=== PATIENT | female | born 1940 | race Caucasian/White ===

== ENCOUNTER 2017-06-05 17:48 | Emergency (ER) | payer MEDICARE, OTHER ==
[~2017-06-05] VITALS: Ht 165.1 cm; Wt 77.1 kg
[2017-06-05] MEDS ORDERED: ALLERGY10 MG PO (18:09)
[2017-06-05] MEDS ORDERED: HYDROCODON-ACE1 EAC8 PO (18:25)
[2017-06-05] MEDS ORDERED: LOSARTAN-HCTZ1 EAC2 PO (18:25)
[2017-06-05] MEDS ORDERED: PROZAC20 MG PO (18:26)
[2017-06-05] MEDS ORDERED: VERAPAMIL ER120 MG PO (18:26)
[2017-06-05] MEDS ORDERED: NORCO 5-325 TA1 EACH PO (19:55)
== END 2017-06-05 20:04 | disposition home or self-care (01) ==
LOC: ED 17:48
DX: T84.018A Broken internal joint prosthesis, other site, initial encounter (principal); Z88.7 Allergy status to serum and vaccine; Z88.5 Allergy status to narcotic agent; Z88.8 Allergy status to other drugs, medicaments and biological substances; Z79.899 Other long term (current) drug therapy
CPT/HCPCS: 73030; 73130; 99283

== ENCOUNTER 2018-08-19 16:15 | Emergency (ER) | payer MEDICARE, OTHER ==
[~2018-08-19] VITALS: Ht 165.1 cm; Wt 77.1 kg
--- OUTSIDE RECORDS SUMMARY | ~2018-08-19 | XMS | Clinical Summary ---
Demographics + + + | Address | [address] | | | [place] [address] | + + + | Home Phone | | + + + | Preferred Language | Unknown | + + + | Marital Status | | + + + | Moravian Affiliation | 1041 | + + + | Race | Unknown | + + + | Ethnic Group | Unknown | + + + Author + + + | Author | [facility] | | | and [place] | + + + | Organization | [facility] | | | and [place] | + + + | Address | Unknown | + + + | Phone | Unavailable | + + + Support + + + + + | Name | Relationship | Address | Phone | + + + + + | Lang Martinez | ECON | [address] | | | | | [place], [place] | | | | | [address] | | + + + + + | Leeann Bush | ECON | Unknown | | + + + + + Care Team Providers + +------+ + | Care Seismograph Chief Name | Role | Phone | + +------+ + | Apolinar Hernandez MD | PP | | + +------+ + Allergies + + + + + + | Active Allergy | Reactions | Severity | Noted | Comments | | | | | Date | | + + + + + + | Lovastatin | Hives, Rash | Low | 04/22/19 | Myalgias | | | | | 17 | | + + + + + + | Codeine | | | 04/22/19 | | | | | | 17 | | + + + + + + | Alendronate | Other (See Comments) | | 04/22/19 | Abdominal pain | | | | | 17 | | + + + + + + | Gabapentin | Other (See Comments) | | 04/22/19 | Malaise | | | | | 17 | | + + + + + + | Atorvastatin | Hives, Rash | Low | 04/22/19 | | | | | | 17 | | + + + + + + | Pregabalin | Swelling | | 04/22/19 | Edema; Malaise | | | | | 17 | | + + + + + + | Niacin And Related | | | 04/22/19 | | | | | | 17 | | + + + + + + | Sulfa Antibiotics | Diarrhea, Nausea And | | 04/22/19 | | | | Vomiting | | 17 | | + + + + + + | Tetanus Toxoids | Hives | | 04/22/19 | Hives and Fever. | | | | | 15 | | + + + + + + | Trazodone | Other (See Comments) | | 04/22/19 | Dysphoria | | | | | 17 | | + + + + + + Medications + + + +---------+------+------+-------+ | Medication | Sig | Dispensed | Refills | Star | End | Statu | | | | | | t | Date | s | | | | | | Date | | | + + + +---------+------+------+-------+ | tiZANidine | Take 8 mg by mouth | | 0 | | | Activ | | (ZANAFLEX) 4 mg | every 8 hours as | | | | | e | | tablet | needed. | | | | | | + + + +---------+------+------+-------+ | FLUoxetine | Take 40 mg by mouth | | 0 | | | Activ | | (PROZAC) 20 mg | as needed. | | | | | e | | capsule | | | | | | | + + + +---------+------+------+-------+ | famotidine | Take 20 mg by mouth | | 0 | | | Activ | | (PEPCID) 20 mg | 2 times daily. | | | | | e | | tablet | | | | | | | + + + +---------+------+------+-------+ | | Take 1 tablet by | | 0 | | | Activ | | losartan-hydrochloro | mouth Daily. | | | | | e | | thiazide (HYZAAR) | | | | | | | | 100-25 MG per tablet | | | | | | | + + + +---------+------+------+-------+ | ALPRAZolam (XANAX) | Take 0.125-0.25 mg | | 0 | | | Activ | | 0.25 mg tablet | by mouth nightly as | | | | | e | | | needed. | | | | | | + + + +---------+------+------+-------+ | trimethoprim | Take 100 mg by mouth | | 0 | | | Activ | | (TRIMPEX) 100 MG | 2 times daily. | | | | | e | | tablet | | | | | | | + + + +---------+------+------+-------+ | | Take 1 tablet by | | 0 | 11/2 | | Activ | | HYDROcodone-acetamin | mouth every 8 hours | | | 1/20 | | e | | ophen (NORCO) | as needed. | | | 16 | | | | 7.5-325 mg per | | | | | | | | tablet | | | | | | | + + + +---------+------+------+-------+ | naproxen | Take 1 tablet by | | 0 | 11/0 | | Activ | | (NAPROSYN) 500 mg | mouth Twice daily | | | 7/20 | | e | | tablet | as needed. | | | 16 | | | + + + +---------+------+------+-------+ | ferrous sulfate | Take 325 mg by mouth | | 0 | | | Activ | | 325 mg tablet | daily (with | | | | | e | | | breakfast). | | | | | | + + + +---------+------+------+-------+ | fluticasone | 1 spray by Nasal | | 0 | | | Activ | | (FLONASE) 50 | route as needed. | | | | | e | | mcg/nasal spray | | | | | | | + + + +---------+------+------+-------+ | SUMAtriptan | Take 50 mg by mouth | | 0 | | | Activ | | (IMITREX) 50 mg | as needed for | | | | | e | | tablet | Migraine. | | | | | | + + + +---------+------+------+-------+ | verapamil (CALAN | Take 240 mg by mouth | | 0 | | | Activ | | SR) 240 mg SR tablet | Daily. | | | | | e | + + + +---------+------+------+-------+ | B Complex Vitamins | Take 1 tablet by | | 0 | | | Activ | | (VITAMIN B COMPLEX) | mouth Daily. | | | | | e | | tablet | | | | | | | + + + +---------+------+------+-------+ | meclizine | Take 12.5 mg by | | 0 | | | Activ | | (ANTIVERT) 25 mg | mouth Twice daily | | | | | e | | tablet | as needed. | | | | | | + + + +---------+------+------+-------+ | Cyanocobalamin | Place 5,000 mcg | | 0 | | | Activ | | (VITAMIN B-12) 5000 | under the tongue | | | | | e | | MCG SUBL | Daily. | | | | | | + + + +---------+------+------+-------+ | cholecalciferol | Take 2,000 Units by | | 0 | | | Activ | | (CHOLECALCIFEROL) | mouth Daily. | | | | | e | | 1000 UNITS TABS | | | | | | | + + + +---------+------+------+-------+ | budesonide | 1 spray by Nasal | | 0 | | | Activ | | (RHINOCORT ALLERGY) | route Daily. | | | | | e | | 32 mcg/nasal spray | | | | | | | | nasal spray | | | | | | | + + + +---------+------+------+-------+ Active Problems + + + | Problem | Noted Date | + + + | Osteoporosis | 06/16/2014 | + + + | Lumbar radiculopathy | 06/16/2014 | + + + | DDD (degenerative disc disease), lumbar | 06/16/2014 | + + + | Facet arthritis of lumbar region | 06/16/2014 | + + + | Trochanteric bursitis of both hips | 06/16/2014 | + + + | Right knee pain | 06/16/2014 | + + + Immunizations + + + + | Name | Dates Previously Given | Next Due | + + + + | INFLUENZA PF | 01/14/2014 | | | QUAD(PED/ADOL/ADULT) | | | | ,PSKT or VIAL | | | + + + + | PNEUMOCOCCAL, | 04/16/2011 | | | UNSPECIFIED | | | | FORMULATION | | | + + + + | ZOSTER, 1 DOSE | 04/16/2005 | | | (ZOSTAVAX) | | | + + + + Family History + + +---------+ + | Medical History | Relation | Name | Comments | + + +---------+ + | No known problems | Daughter | LEEANN | | | | | RAFA | | + + +---------+ + | Arthritis | Father | FOREST | | | | | JIGNA | | + + +---------+ + | Heart disease | Father | FOREST | | | | | BENITO | | + + +---------+ + | No known problems | Maternal | | | | | Grandfath | | | | | er | | | + + +---------+ + | No known problems | Maternal | | | | | Grandmoth | | | | | er | | | + + +---------+ + | Heart disease | Mother | GABBI | | | | | BENITO | | + + +---------+ + | Rheum arthritis | Mother | GABBI | | | | | BENITO | | + + +---------+ + | No known problems | Paternal | | | | | Grandfath | | | | | er | | | + + +---------+ + | No known problems | Paternal | | | | | Grandmoth | | | | | er | | | + + +---------+ + | Stillborn | Son | | | + + +---------+ + + +---------+ + + | Relation | Name | Status | Comments | + +---------+ + + | Daughter | LEEANN | Alive | | | | RAFA | | | + +---------+ + + | Father | FOREST | | Heart | | | BENITO | (Age | | | | | 50) | | + +---------+ + + | Maternal Grandfather | | | | + +---------+ + + | Maternal Grandmother | | | | + +---------+ + + | Mother | GABBI | | Pneumonia | | | BENITO | (Age | | | | | 70) | | + +---------+ + + | Paternal Grandfather | | | | + +---------+ + + | Paternal Grandmother | | | | + +---------+ + + | Son | | | Stillborn | | | | (Age | | | | | 0) | | + +---------+ + + | Son | | | | + +---------+ + + Social History + +-------+ +--------+------+ | Tobacco Use | Types | Packs/Day | Years | Date | | | | | Used | | + +-------+ +--------+------+ | Never Smoker | | | | | + +-------+ +--------+------+ + +---+---+---+ | Smokeless Tobacco: | | | | | Never Used | | | | + +---+---+---+ + + +---------+ + | Alcohol Use | Drinks/We | oz/Week | Comments | | | ek | | | + + +---------+ + | Yes | 0 | 0.0 | 1-2 drinks monthly | | | Standard | | | | | drinks or | | | | | | | | | | equivalen | | | | | t | | | + + +---------+ + + + + | Sex Assigned at | Date Recorded | | | | + + + | Not on file | | + + + + + + + | Job Start Date | Occupation | Industry | + + + + | Not on file | Not on file | Not on file | + + + + + + + + | Travel History | Travel Start | Travel End | + + + + + + | No recent travel history available. | + + Last Filed Vital Signs + + + + | Vital Sign | Reading | Time Taken | + + + + | Blood Pressure | 193/84 | 05/25/20161430 PST | + + + + | Pulse | 78 | 05/25/20161430 PST | + + + + | Temperature | - | - | + + + + | Respiratory Rate | 15 | 08/17/20142 PDT | + + + + | Oxygen Saturation | - | - | + + + + | Inhaled Oxygen | - | - | | Concentration | | | + + + + | Weight | 86.4 kg (190 lb 6.4 | 05/17/20161003 PST | | | oz) | | + + + + | Height | 165.1 cm (5' 5") | 05/17/20161003 PST | + + + + | Body Mass Index | 31.68 | 05/17/20161003 PST | + + + + Plan of Treatment + + + + + | Health Maintenance | Due Date | Last Done | Comments | + + + + + | Vaccine: | | | | | Pneumococcal (PPSV23 | 5 | | | | only) 65+ | | | | | Low/Medium Risk (1 | | | | | of 1 - PPSV23) | | | | + + + + + | Vaccine: Zoster (2 | | 04/16/2005 | | | of 3) | 6 | | | + + + + + | Vaccine: Influenza | | 01/14/2014 | | | (Season Ended) | 9 | | | + + + + + Results Not on filefrom Last 3 Months Insurance + +--------+ +--------+ +---------+--------+ | Payer | Benefi | Subscriber | Effect | Phone | Address | Type | | | t Plan | ID | benedict | | | | | | / | | Dates | | | | | | Group | | | | | | + +--------+ +--------+ +---------+--------+ | HUMANA | HUMANA | [id number] | | [phone] | | Indemn | | | MDCR | | 015-Pr | 4 | | ity | | | SUPPL | | esent | | | | + +--------+ +--------+ +---------+--------+ | MEDICARE | MEDICA | [id number] | 12/16/19 | [phone] | | Medica | | | RE | | 05-Pre | 5 | | re | | | PART A | | sent | | | | | | AND B | | | | | | + +--------+ +--------+ +---------+--------+ + +--------+ +--------+ + + | Guarantor Name | Accoun | Relation to | Date | Phone | Billing Address | | | t Type | Patient | of | | | | | | | | | | + +--------+ +--------+ + + | She Benito | Person | Self [birth year] | [address] | | | al/Fam | | 1940 | [phone] | [place] [address] | | | [place] | | | 0 (Home) | | + +--------+ +--------+ + + Advance Directives Patient has advance care planning documents on file. For more information, please contact:[facility] [place] [address]
--- OUTSIDE RECORDS SUMMARY | ~2018-08-19 | XMS | Clinical Summary ---
Demographics + + + | Address | [address] | | | [place] [address] | + + + | Home Phone | | + + + | Preferred Language | Unknown | + + + | Marital Status | | + + + | Quaker Affiliation | 1041 | + + + | Race | Unknown | + + + | Ethnic Group | Unknown | + + + Author + + + | Author | [facility] | | | and Liorana | + + + | Organization | [facility] | | | and Liorana [...] [place], [place] | | | | | [address] | | + + + + + | Leeann Bush | ECON | Unknown | | + + + + + Care Team Providers + +------+ + | Care Information Technology Coordinator Name | Role | Phone | + [...] +--------+ +---------+--------+ | HUMANA | HUMANA | [id number] | | [phone] | | Indemn | | | MDCR | | 015-Pr | 4 | | ity | | | SUPPL | | esent | | | | + +--------+ +--------+ +---------+--------+ | MEDICARE | MEDICA | [id number] | 12/16/19 | [phone] | | Medica [...] | 1940 | [phone] | [place] [address] | | | [place] | | | 0 (Home) | | + +--------+ +--------+ + + Advance Directives Patient has advance care planning documents on file. For more information, please contact:[facility] [address]
[~2018-08-19 16:15] MED LIST: ALLERGY10 MG PO; HYDROCODON-ACE1 EAC8 PO; LOSARTAN-HCTZ1 EAC2 PO; NORCO 5-325 TA1 EACH PO; PROZAC20 MG PO; VERAPAMIL ER120 MG PO
--- OUTSIDE RECORDS SUMMARY | 2018-08-19 16:18 | XMS ---
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 E.D. VISIT COUNT (12 MO.) 1 [facility] TOTAL 1 NOTE: Visits indicate total known visits. ED/UCC VISIT TRACKING (12 MO.) 08/19/2018 16:16 [facility] [place] TYPE: Emergency COMPLAINT: - FALL,R SHOULDER PAIN INPATIENT VISIT TRACKING (12 MO.) No inpatient visits to display in this time frame [email or web address]
[2018-08-19] MEDS ORDERED: FAMOTIDINE20 MG PO (17:05)
[2018-08-19] MEDS ORDERED: PERCOCET 5-3251 EACH PO (19:23)
== END 2018-08-19 19:30 | disposition home or self-care (01) ==
LOC: ED 16:15
DX: M25.511 Pain in right shoulder (principal); I10 Essential (primary) hypertension; E78.00 Pure hypercholesterolemia, unspecified; Z88.7 Allergy status to serum and vaccine; Z88.5 Allergy status to narcotic agent; Z79.899 Other long term (current) drug therapy; Z91.048 Other nonmedicinal substance allergy status
CPT/HCPCS: 73030; 96372; 99283-25; J1170

== ENCOUNTER 2019-09-07 22:28 | Emergency (ER) | payer MEDICARE, OTHER ==
[~2019-09-07] VITALS: Ht 165.1 cm; Wt 77.1 kg
--- OUTSIDE RECORDS SUMMARY | ~2019-09-07 | XMS | Encounter Summary ---
Demographics + + + | Address | [address] | | | [place] [address] | + + + | Home Phone | | + + + | Preferred Language | Unknown | + + + | Marital Status | | + + + | Judaism Affiliation | 1041 | + + + | Race | Unknown | + + + | Ethnic Group | Unknown | + + + Author + + + | Author | [facility] | | | and Liorana | + + + | Organization | [facility] | | | and Liorana [...] [place], [place] | | | | | [address] | | + + + + + | Leeann Bush | ECON | Unknown | | + + + + + Care Team Providers + +------+ + | Care Supervisor Baking Name | Role | Phone | + +------+ + PCP | Unavailable | + +------+ + Encounter Details +--------+ + + + + | Date | Type | Department | Care Team | Description | +--------+ + + + + | 11/16/ | Hospital | [facility] | | | | 2003 | Encounter | MED CTR XRAY [address] | | | | | | [address] | | | | | | [place] [address] | | | | | | [phone] | | | +--------+ + + + + Social History + +-------+ +--------+------+ | Tobacco Use | Types | Packs/Day | Years | Date | | | | | Used | | + +-------+ +--------+------+ | Never Assessed | | | | | + +-------+ +--------+------+ + + + | Sex Assigned at [...] recent travel history available. | + + documented as of this encounter Plan of Treatment Not on filedocumented as of this encounter Visit Diagnoses Not on filedocumented in this encounter"
--- OUTSIDE RECORDS SUMMARY | ~2019-09-07 | XMS | Encounter Summary ---
Demographics + + + | Address | [address] | | | [place] [address] | + + + | Home Phone | | + + + | Preferred Language | Unknown | + + + | Marital Status | | + + + | Alevism Affiliation | 1041 | + + + | Race | Unknown | + + + | Ethnic Group | Unknown | + + + Author + + + | Author | [facility] | | | and Liorana | + + + | Organization | [facility] | | | and Liorana | [...] [place], [place] | | | | | [address] | | + + + + + | Leeann Bush | ECON | Unknown | | + + + + + Care Team Providers + +------+ + | Care Chocolate Maker Name | Role | Phone | + +------+ + | Apolinar Hernandez MD | PCP | | + +------+ + Encounter Details +--------+ + + + + | Date | Type | Department | Care Team | Description | +--------+ + + + + | 07/08/ | Hospital | [facility] | Ronal, | Right knee pain | | 2015 | Encounter | MED CTR XRAY [address] | [address] | | | | | [place] | [address] | | | | | [place] [address] | [place] [address] | | | | | [phone] | [phone] | | | | | | | | +--------+ + + + [...] + +---------+ + | Alcohol Use | Drinks/Week | oz/Week | Comments | + + +---------+ + | Yes | | | Social | + + +---------+ + + + [...] + + documented as of this encounter Medications at Time of Discharge + + + +---------+ + + | Medication | Sig | Dispensed | Refills | Start | End Date | | | | | | Date | | + + + +---------+ + + | ALPRAZolam (XANAX) | Take 0.125-0.25 mg | | 0 | | | | 0.25 mg tablet | by mouth nightly as | | | | | | | needed. | | | | | + + + +---------+ + + | famotidine | Take 20 mg by mouth | | 0 | | | | (PEPCID) 20 mg | 2 times daily. | | | | | | tablet | | | | | | + + + +---------+ + + | FLUoxetine | Take 40 mg by mouth | | 0 | | | | (PROZAC) 20 mg | as needed. | | | | | | capsule | | | | | | + + + +---------+ + + | | Take 1 tablet by | | 0 | | | | losartan-hydrochloro | mouth Daily. | | | | | | thiazide (HYZAAR) | | | | | | | 100-25 MG per tablet | | | | | | + + + +---------+ + + | tiZANidine | Take 8 mg by mouth | | 0 | | | | (ZANAFLEX) 4 mg | every 8 hours as | | | | | | tablet | needed. | | | | | + + + +---------+ + + | trimethoprim | Take 100 mg by mouth | | 0 | | | | (TRIMPEX) 100 MG | 2 times daily. | | | | | | tablet | | | | | | + + + +---------+ + + | Cholecalciferol | Take 1 capsule by | | 0 | | | | (VITAMIN D PO) | mouth Twice a week. | | | | 7 | + + + +---------+ + + | gabapentin | Take 1 capsule by | 60 | 0 | 07/09/19 | | | (NEURONTIN) 300 mg | mouth 2 times daily. | capsule | | 15 | 7 | | capsule | | | | | | + + + +---------+ + + | | Take 1 tablet by | | 0 | | | | HYDROcodone-acetamin | mouth every 6 hours | | | | 7 | | ophen (NORCO) 5-325 | as needed. | | | | | | mg per tablet | | | | | | + + + +---------+ + + | NAPROXEN PO | Take by mouth | | 0 | | | | | Daily. | | | | 7 | + + + +---------+ + + | POTASSIUM PO | Take 10 mcg by mouth | | 0 | | | | | Daily. | | | | 7 | + + + +---------+ + + | VERAPAMIL HCL PO | Take 500 mg by mouth | | 0 | | | | | Daily. | | | | 7 | + + + +---------+ + + documented as of this encounter Plan of Treatment Not on filedocumented as of this encounter Procedures + +--------+ + + + | Procedure Name | Priori | Date/Time | Associated Diagnosis | Comments | | | ty | | | | + +--------+ + + + | XR KNEE RIGHT 4 + VW | Routin | 07/08/2014 | Right knee pain | Results for this | | | e | 3:11 PM | | procedure are in the | | | | PDT | | results section. | + +--------+ + + + documented in this encounter Results XR Knee Right 4 + Vw (07/08/2014 3:11 PM PDT) + + | Specimen | + + | | + + + + + | Narrative | Performed At | + + + | RIGHT KNEE: 07/08/2014 3:11 PM CLINICAL HISTORY: chronic right | [facility] | | knee pain, possible arthritis COMPARISON: None FINDINGS: AP | [facility] | | and PA standing and sunrise views of both knees along with lateral | [facility] | | view of the right knee. Bilaterally there is moderately severe joint | - IMAGING | | space narrowing of the medial compartment. This is somewhat greater | | | on the right. On the right subchondral bone is sclerotic but smooth. | | | Small joint marginal osteophytes on the tibia. Mild narrowing of the | | | lateral patellofemoral space bilaterally. No fracture or bony | | | destructive change. No joint effusion or other soft tissue | | | abnormality. IMPRESSION - Moderate bilateral osteoarthrosis of the | | | knees, most severe in the medial compartments. Dictated and | | | Signed by: Bryan De La Vega MD Electronically signed: 07/08/2014 4:30 | | | PM | | + + + + + | Procedure Note | + + | Martín, Rad Results In - 07/08/2014 4:34 PM PDT RIGHT KNEE: 07/08/2014 3:11 PM | | | | CLINICAL HISTORY: chronic right knee pain, possible arthritis | | | | COMPARISON: None | | | | FINDINGS: AP and PA standing and sunrise views of both knees along with lateral | | view of the right knee. | | Bilaterally there is moderately severe joint space narrowing of the medial | | compartment. This is somewhat greater on the right. On the right subchondral | | bone is sclerotic but smooth. Small joint marginal osteophytes on the tibia. | | Mild narrowing of the lateral patellofemoral space bilaterally. | | | | No fracture or bony destructive change. No joint effusion or other soft tissue | | abnormality. | | | | IMPRESSION - Moderate bilateral osteoarthrosis of the knees, most severe in the | | medial compartments. | | | | Dictated and Signed by: Bryan De La Vega MD | | Electronically signed: 07/08/2014 4:30 PM | + + + + + + + | Performing | Address | City/State/Zipcode | Phone Number | | Organization | | | | + + + + + | [facility] | [address] | [place] | [phone] | | [facility] | | [address] | | | - IMAGING | | | | + + + + + documented in this encounter Visit Diagnoses + + | Diagnosis | + + | Right knee pain Pain in joint, lower leg | + + documented in this encounter"
--- OUTSIDE RECORDS SUMMARY | ~2019-09-07 | XMS | Encounter Summary ---
Demographics + + + | Address | [address] | | | [place] [address] | + + + | Home Phone | | + + + | Preferred Language | Unknown | + + + | Marital Status | | + + + | Worship Affiliation | 1041 | + + + | Race | Unknown | + + + | Ethnic Group | Unknown | + + + Author + + + | Author | [facility] | | | and Liorana | + + + | Organization | [facility] | | | and Liorana [...] [place], [place] | | | | | [address] | | + + + + + | Leeann Bush | ECON | Unknown | | + + + + + Care Team Providers + +------+ + | Care Clothes Drier Assembler Name | Role | Phone | + +------+ + PCP | Unavailable | + +------+ + Encounter Details +--------+ + + + + | Date | Type | Department | Care Team | Description | +--------+ + + + + | 10/28/ | Hospital | [facility] | | | | 1993 | Encounter | MED CTR XRAY [address] | | | | | | [address] | | | | | | [place] [address] | | | | | | [phone] | | | +--------+ + + + [...]
--- OUTSIDE RECORDS SUMMARY | ~2019-09-07 | XMS | Encounter Summary ---
Demographics + + + | Address | [address] | | | [place] [address] | + + + | Home Phone | | + + + | Preferred Language | Unknown | + + + | Marital Status | | + + + | Anabaptist Affiliation | 1041 | + + + | Race | Unknown | + + + | Ethnic Group | Unknown | + + + Author + + + | Author | [facility] | | | and Liorana | + + + | Organization | [facility] | | | and Liorana [...] [place], [place] | | | | | [address] | | + + + + + | Leeann Bush | ECON | Unknown | | + + + + + Care Team Providers + +------+ + | Care Machine Steak Tenderizer Name | Role | Phone | + +------+ + PCP | Unavailable | + +------+ + Encounter Details +--------+ + + + + | Date | Type | Department | Care Team | Description | +--------+ + + + + | 01/24/ | Hospital | [facility] | | | | 2005 | Encounter | MED CTR XRAY [address] | | | | | | [address] | | | | | | [place] [address] | | | | | | [phone] | | | +--------+ + + + [...]
--- OUTSIDE RECORDS SUMMARY | ~2019-09-07 | XMS | Encounter Summary ---
Demographics + + + | Address | [address] | | | [place] [address] | + + + | Home Phone | | + + + | Preferred Language | Unknown | + + + | Marital Status | | + + + | Yazidism Affiliation | 1041 | + + + | Race | Unknown | + + + | Ethnic Group | Unknown | + + + Author + + + | Author | [facility] | | | and Liorana | + + + | Organization | [facility] | | | and Liorana [...] [place], [place] | | | | | [address] | | + + + + + | Leeann Bush | ECON | Unknown | | + + + + + Care Team Providers + +------+ + | Care Enamel Pulverizer Name | Role | Phone | + +------+ + | Apolinar Hernandez MD | PCP | | + +------+ + Encounter Details +--------+ + + + + | Date | Type | Department | Care Team | Description | +--------+ + + + + | 03/30/ | Orders Only | [facility] [place] | Nate Hawk, | Chronic right-sided | | 2016 | | NEUROSURGERY [address] | DO [address] | back pain, | | | | [address] | [address] [place], [place] | unspecified back | | | | [place], [place] | [address] | location (Primary | | | | [address] | | Dx) | | | | [phone] | | | +--------+ + + + [...] Not on filedocumented as of this encounter Results XR Lumbar Spine 4 + Vw (05/17/2016 8:23 AM PST) + + | Specimen | + + | | + + + + + | Narrative | Performed At | + + + | EXAM: XR LUMBAR SPINE 4 + VW HISTORY: back pain | [facility] | | TECHNIQUE: AP, lateral neutral, lateral flexion and extension views of | [facility] | | the lumbar spine COMPARISON: 04/04/2016. FINDINGS: Bones | [facility] | | appear osteopenic. There is evidence of mild to moderate multilevel | - IMAGING | | lumbar disc and facet degeneration, most pronounced at the lower | | | lumbar levels. Alignment is normal. No abnormal motion with flexion | | | or extension. No fractures are evident. Paraspinous soft tissues are | | | unremarkable. There are atherosclerotic calcifications in the aorta. | | | IMPRESSION - Multilevel lumbar degeneration. No radiographic | | | evidence for significant instability. Osteopenia. CRITICAL | | | VALUE: No Dictated and Signed by: Bahman Clement MD | | | Electronically signed: 05/17/2016 8:26 AM | | + + + + + | Procedure Note | + + | Martín, Rad Results In - 05/17/2016 8:29 AM PST EXAM: XR LUMBAR SPINE 4 + VW | | | | HISTORY: back pain | | | | TECHNIQUE: AP, lateral neutral, lateral flexion and extension views of the | | lumbar spine | | | | COMPARISON: 04/04/2016. | | | | FINDINGS: | | Bones appear osteopenic. | | There is evidence of mild to moderate multilevel lumbar disc and facet | | degeneration, most pronounced at the lower lumbar levels. | | Alignment is normal. No abnormal motion with flexion or extension. | | No fractures are evident. | | Paraspinous soft tissues are unremarkable. | | There are atherosclerotic calcifications in the aorta. | | | | IMPRESSION - | | Multilevel lumbar degeneration. No radiographic evidence for significant | | instability. | | Osteopenia. | | | | CRITICAL VALUE: No | | | | Dictated and Signed by: Bahman Clement MD | | Electronically signed: 05/17/2016 8:26 AM | + + + + + + + | Performing | Address | City/State/Zipcode | Phone Number | | Organization | | | | + + + + + | [facility] | [address] | [place] | [phone] | | [facility] | | [address] | | | - IMAGING | | | | + + + + + documented in this encounter Visit Diagnoses + + | Diagnosis | + + | Chronic right-sided back pain, unspecified back location - Primary | + + documented in this encounter"
--- OUTSIDE RECORDS SUMMARY | ~2019-09-07 | XMS | Encounter Summary ---
Demographics + + + | Address | [address] | | | [place] [address] | + + + | Home Phone | | + + + | Preferred Language | Unknown | + + + | Marital Status | | + + + | Bahai Affiliation | 1041 | + + + | Race | Unknown | + + + | Ethnic Group | Unknown | + + + Author + + + | Author | [facility] | | | and Liorana | + + + | Organization | [facility] | | | and Liorana [...] [place], [place] | | | | | [address] | | + + + + + | Leeann Bush | ECON | Unknown | | + + + + + Care Team Providers + +------+ + | Care Commercial Construction Estimator Name | Role | Phone | + +------+ + | Apolinar Hernandez MD | PCP | | + +------+ + Reason for Visit Service/Procedure (Routine) +--------+--------+ + + + + | Status | Reason | Specialty | Diagnoses / | Referred By | Referred To | | | | | Procedures | Contact | Contact | +--------+--------+ + + + + | Closed | | Radiology | Diagnoses | | [facility] | | | | | Thoracic or | [place], | [address] | | | | | lumbosacral | Mohinder Albarran MD | [place], | | | | | neuritis or | [address] | [place] | | | | | | [place] | [address] | | | | | radiculitis, | [place], [place] | Phone: | | | | | unspecified | [address] | [phone] | | | | | Procedures | Phone: | Fax: | | | | | [place] INJECT | [phone] | [phone] | | | | | ANES/STEROID | Fax: | | | | | | FORAMEN | [phone] | | | | | | LUMBAR/SACRA | | | | | | | L W IMG | | | | | | | GUIDE ,1 | | | | | | | LEVEL [place] | | | | | | | TRIAMCINOLON | | | | | | | E ACET INJ | | | | | | | NOS, 10 MG | | | | | | | Right L5-S1 | | | | | | | TFESI-appt | | | | | | | 4/9 | | | +--------+--------+ + + + + Encounter Details +--------+ + + + + | Date | Type | Department | Care Team | Description | +--------+ + + + + | 07/23/ | Hospital | [facility] | Jorgedanomendy, | Right knee pain; | | 2014 | Encounter | MED CTR XRAY [address] | [address] | Right lumbar | | | | [place] | [facility] | radiculopathy | | | | [place] [address] | [place] [address] | | | | | [phone] | [phone] | | | | | | | | | | | | Grape CrusherEdmundo | | | | | | familia mauricio | | +--------+ + + + + [...] + + documented as of this encounter Last Filed Vital Signs + +---------+ + + | Vital Sign | Reading | Time Taken | Comments | + +---------+ + + | Blood Pressure | 193/105 | 07/23/2014 4:05 PM | | | | | PDT | | + +---------+ + + | Pulse | 66 | 07/23/2014 4:05 PM | | | | | PDT | | + +---------+ + + | Temperature | - | - | | + +---------+ + + | Respiratory Rate | - | - | | + +---------+ + + | Oxygen Saturation | - | - | | + +---------+ + + | Inhaled Oxygen | - | - | | | Concentration | | | | + +---------+ + + | Weight | - | - | | + +---------+ + + | Height | - | - | | + +---------+ + + | Body Mass Index | - | - | | + +---------+ + + documented in this encounter Medications at Time of Discharge [...] | + +--------+ + + + | FL EPIDURAL STEROID | Routin | 07/23/2014 | Right knee pain | Results for this | | INJECTION LUMBAR | e | 3:56 PM | Right lumbar | procedure are in the | | TRANSFORAMINAL | | PDT | radiculopathy | results section. | + +--------+ + + + documented in this encounter Results FL DELMI Lumbar Transforaminal (07/23/2014 3:56 PM PDT) + + | Specimen | + + | | + + + + + | Narrative | Performed At | + + + | 07/23/2014 Transforaminal Epidural Steroid Injection Diagnosis: | [facility] | | Lumbar radiculopathy ICD-9 Code 724.4 She Mckeon | [facility] | | presents to the fluoroscopy suite for a fluoroscopically-guided [facility] | | right L5-S1 transforaminal epidural steroid injection as part of | - IMAGING | | conservative management for chronic pain with lumbar radiculopathy | | | and degenerative disk disease. After informed consent was | | | obtained, the patient lay in the prone position on the fluoroscopy | | | table. The area was identified under fluoroscopic guidance. The | | | area was prepped and draped in sterile fashion. A 25-gauge, | | | 1.5-inch needle was inserted into this region and approximately 3 mL | | | of buffered 1% lidocaine was infused. Then, a 22-gauge spinal | | | needle was inserted into the posterior superior transforaminal space | | | and advanced into the epidural space under fluoroscopic guidance. | | | Confirmation into the epidural space was obtained with infusion of | | | approximately 1 mL of Omnipaque contrast which showed epidural flow | | | as well as nerve sheath flow. Then, a combination of 1.5 mL of | | | 1% lidocaine and 1.5 mL of 6 mg/mL Celestone was infused. The | | | patient tolerated the procedure well without complications. Pre- and | | | post-procedure blood pressures were stable. The patient was given | | | verbal as well as written follow-up instructions. Prior to | | | the start of the procedure, the following were performed and/or | | | verified, including correct patient identity, correct site/side marked | | | and visible, agreement on the procedure to be done, correct patient | | | positioning and an accurate procedure consent form. Any safety | | | precautions based on clinical history and/or medication use have been | | | addressed. I personally performed the procedure above. | | | Estimated blood loss: Minimal Complications: None Findings: As | | | expected Anesthesia: Local 1% Lidocaine | | + + + + + + + + | Performing | Address | City/State[facility] | Phone Number | | Organization | | | | + + + + + | [facility] | [address] | [place] | [phone] | | [facility] | | [address] | | | - IMAGING | | | | + + + + + documented in this encounter Visit Diagnoses + + | Diagnosis | + + | Right knee pain Pain in joint, lower leg | + + | Right lumbar radiculopathy Thoracic or lumbosacral neuritis or radiculitis, | | unspecified | + + documented in this encounter Administered Medications + +--------+ +------+------+------+ | Medication Order | MAR | Action | Dose | Rate | Site | | | Action | Date | | | | + +--------+ +------+------+------+ | betamethasone (CELESTONE | Given | 07/24/19 | 6 mg | | | | SOLUSPAN) injection 6 mg 6 mg, | | 15 4:04 | | | | | Other, ONCE, [facility] 07/23/14 at 1615, | | PM PDT | | | | | For 1 dose, Shake well. Not for | | | | | | | IV use., | | | | | | + +--------+ +------+------+------+ +---+---+ | | | +---+---+ + +-------+ +-------+---+---+ | iohexol (OMNIPAQUE 300) 300 | Given | 07/24/19 | 4 mLs | | | | mg/mL injection 4 mL 4 mL, | | 15 4:01 | | | | | INTRATHECAL, ONCE, [facility] 07/23/14 at | | PM PDT | | | | | 1615, For 1 dose | | | | | | + +-------+ +-------+---+---+ +---+---+ | | | +---+---+ + +-------+ +------+---+ + | lidocaine 1% injection 1 mL 1 | Given | 07/24/19 | 1 mL | | Other | | mL, Intradermal, ONCE, [facility] 07/23/14 | | 15 3:56 | | | (Comment | | at 1615, For 1 dose | | PM PDT | | | ) | + +-------+ +------+---+ + +---+---+ | | | +---+---+ + +-------+ +------+---+---+ | sodium bicarbonate (NEUT) 4% | Given | 07/24/19 | 1 mL | | | | injection 1 mL 1 mL, | | 15 3:56 | | | | | Intravenous, ONCE, [facility] 07/23/14 at | | PM PDT | | | | | 1615, For 1 dose, Use for | | | | | | | addition to other parenteral | | | | | | | solutions., | | | | | | + +-------+ +------+---+---+ +---+---+ | | | +---+---+ + +-------+ +-------+---+---+ | triamcinolone acetonide | Given | 07/24/19 | 40 mg | | | | (KENALOG-40) 40 mg/mL injection | | 15 4:02 | | | | | 40 mg 40 mg, Intra-articular, | | PM PDT | | | | | ONCE, [facility] 07/23/14 at 1615, For 1 | | | | | | | dose, Shake well. Not for IV | | | | | | | use., | | | | | | + +-------+ +-------+---+---+ +---+---+ | | | +---+---+ documented in this encounter"
--- OUTSIDE RECORDS SUMMARY | ~2019-09-07 | XMS | Encounter Summary ---
Demographics + + + | Address | [address] | | | [place] [address] | + + + | Home Phone | | + + + | Preferred Language | Unknown | + + + | Marital Status | | + + + | Hindu Affiliation | 1041 | + + + | Race | Unknown | + + + | Ethnic Group | Unknown | + + + Author + + + | Author | [facility] | | | and Liorana | + + + | Organization | [facility] | | | and Liorana [...] [place], [place] | | | | | [address] | | + + + + + | Leeann Bush | ECON | Unknown | | + + + + + Care Team Providers + +------+ + | Care Medical Stenographer Name | Role | Phone | + +------+ + | Apolinar Hernandez MD | PCP | | + +------+ + Encounter Details +--------+ + + + + | Date | Type | Department | Care Team | Description | +--------+ + + + + | 04/22/ | Abstract | [facility] [place] | Apolinar Palomino | | | 2014 | | PHYSIATRY [address] | [address] | | | | | [address] [facility] [address] | [place] | | | | | [place] | [place] [address] | | | | | [address] | [phone] | | | | | [phone] | | | +--------+ + + + [...]
--- OUTSIDE RECORDS SUMMARY | ~2019-09-07 | XMS | Encounter Summary ---
Demographics + + + | Address | [address] | | | [place] [address] | + + + | Home Phone | | + + + | Preferred Language | Unknown | + + + | Marital Status | | + + + | Nondenominational Affiliation | 1041 | + + + | Race | Unknown | + + + | Ethnic Group | Unknown | + + + Author + + + | Author | [facility] | | | and Liorana | + + + | Organization | [facility] | | | and Liorana | [...] [place], [place] | | | | | [address] | | + + + + + | Leeann Bush | ECON | Unknown | | + + + + + Care Team Providers + +------+ + | Care Detonator Assembler Name | Role | Phone | + +------+ + | Apolinar Hernandez MD | PCP | | + +------+ + Encounter Details +--------+ + + + + | Date | Type | Department | Care Team | Description | +--------+ + + + + | 04/22/ | Abstract | [facility] [place] | Reed Chicas, | | | 2016 | | NEUROSURGERY [address] | PA-C [address] | | | | | [address] | [address] [place] | | | | | [place], [place] | [place] [address] | | | | | [address] | [phone] | | | | | [phone] | | | +--------+ + + + [...] + +---------+ + | Yes | 0 Standard drinks | 0.0 | 1-2 drinks monthly | | | or equivalent | | | + + +---------+ + [...]
--- OUTSIDE RECORDS SUMMARY | ~2019-09-07 | XMS | Encounter Summary ---
Demographics + + + | Address | [address] | | | [place] [address] | + + + | Home Phone | | + + + | Preferred Language | Unknown | + + + | Marital Status | | + + + | Judaism Affiliation | 1041 | + + + | Race | Unknown | + + + | Ethnic Group | Unknown | + + + Author + + + | Author | [facility] | | | and Liorana | + + + | Organization | [facility] | | | and [...] [place], [place] | | | | | [address] | | + + + + + | Leeann Bush | ECON | Unknown | | + + + + + Care Team Providers + +------+ + | Care Source Inspector Name | Role | Phone | + +------+ + | Apolinar Hernandez MD | PCP | | + +------+ + Encounter Details +--------+ + + + + | Date | Type | Department | Care Team | Description | +--------+ + + + + | 07/08/ | Orders Only | [facility] [place] | Ronal, | Right knee pain | | 2015 | | PHYSIATRY [address] | [address] | (Primary Dx); Right | | | | [address] | [address] | lumbar radiculopathy | | | | [place] | [place] [address] | | | | | [address] | [phone] | | | | | [phone] | | | +--------+ + + + [...] on filedocumented as of this encounter Results FL DELMI Lumbar Transforaminal (07/23/2014 3:56 PM PDT) + + | Specimen | + + | | + + + + + | Narrative | Performed At | + + + | 07/23/2014 Transforaminal Epidural Steroid Injection Diagnosis: | [facility] | | Lumbar radiculopathy ICD-9 Code 724.4 She Mckeon | [facility] | | presents to the fluoroscopy suite for a fluoroscopically-guided [facility] | | right L5-S1 transforaminal epidural steroid [...] | + + + + + | [facility] | [address] | [place] | [phone] | | [facility] | | [address] | | | - IMAGING | | | | + + + + + documented in this encounter Visit Diagnoses + + | Diagnosis | + + | Right knee pain - Primary Pain in joint, lower leg | + + | Right lumbar radiculopathy Thoracic or lumbosacral neuritis or radiculitis, | | unspecified | + + documented in this encounter"
--- OUTSIDE RECORDS SUMMARY | ~2019-09-07 | XMS | Encounter Summary ---
Demographics + + + | Address | [address] | | | [place] [address] | + + + | Home Phone | | + + + | Preferred Language | Unknown | + + + | Marital Status | | + + + | Alevism Affiliation | 1041 | + + + | Race | Unknown | + + + | Ethnic Group | Unknown | + + + Author + + + | Author | [facility] | | | and Liorana | + + + | Organization | [facility] | | | and [...] [place], [place] | | | | | [address] | | + + + + + | Leeann Bush | ECON | Unknown | | + + + + + Care Team Providers + +------+ + | Care Production Welder Name | Role | Phone | + [...] Thoracic or | [place], | [address] | | | | | lumbosacral | Mohinder Albarran MD | [place], | | | | | neuritis or | [address] | [place] | | | | | | [place] | [address] | | | | | radiculitis, | [place], [place] | Phone: | | | | | unspecified | [address] | [phone] | | | | | ADM | Phone: | Fax: | | | | | Procedures | [phone] | [phone] | | | | | [place] INJECT | Fax: | | | | | | ANES/STEROID | [phone] | | | | | | FORAMEN | | | | | | | LUMBAR/SACRA | | | | | | | L W IMG | | | | | | | GUIDE ,1 | | | | | | | LEVEL [place] | | | | | | | TRIAMCINOLON | | | | | | | E ACET INJ | | | | | | | NOS, 10 MG | | | | | | | Right L5-S1 | | | | | | | TFESI-APPT | | | | | | | 3/11 | | | +--------+--------+ + + + + Encounter Details +--------+ + + + + | Date | Type | Department | Care Team | Description | +--------+ + + + + | 06/24/ | Hospital | [facility] | Mohinder Mendoza | Right lumbar | | 2015 | Encounter | MED CTR XRAY [address] | T[address] | radiculopathy | | | | [place] | [facility] [place] | | | | | [place] [address] | [address] | | | | | [phone] | | | | | | | Offset Printing Operator, [facility] | | | | | | [place] | | +--------+ + + + + [...] +---------+ + + | Blood Pressure | 162/84 | 06/24/2014 1:03 PM | | | | | PDT | | + +---------+ + + | Pulse | 111 | 06/24/2014 1:03 PM | | | | | PDT [...] at Time of Discharge + + + +---------+--------+ + | Medication | Sig | Dispensed | Refills | Start | End Date | | | | | | Date | | + + + +---------+--------+ + | ALPRAZolam (XANAX) | Take 0.125-0.25 mg | | 0 | | | | 0.25 mg tablet | by mouth nightly as | | | | | | | needed. | | | | | + + + +---------+--------+ + | famotidine | Take 20 mg by mouth | | 0 | | | | (PEPCID) 20 mg | 2 times daily. | | | | | | tablet | | | | | | + + + +---------+--------+ + | FLUoxetine | Take 40 mg by mouth | | 0 | | | | (PROZAC) 20 mg | as needed. | | | | | | capsule | | | | | | + + + +---------+--------+ + | | Take 1 tablet by | | 0 | | | | losartan-hydrochloro | mouth Daily. | | | | | | thiazide (HYZAAR) | | | | | | | 100-25 MG per tablet | | | | | | + + + +---------+--------+ + | tiZANidine | Take 8 mg by mouth | | 0 | | | | (ZANAFLEX) 4 mg | every 8 hours as | | | | | | tablet | needed. | | | | | + + + +---------+--------+ + | trimethoprim | Take 100 mg by mouth | | 0 | | | | (TRIMPEX) 100 MG | 2 times daily. | | | | | | tablet | | | | | | + + + +---------+--------+ + | Cholecalciferol | Take 1 capsule by | | 0 | | | | (VITAMIN D PO) | mouth Twice a week. | | | | 7 | + + + +---------+--------+ + | | Take 1 tablet by | | 0 | | | | HYDROcodone-acetamin | mouth every 6 hours | | | | 7 | | ophen (NORCO) 5-325 | as needed. | | | | | | mg per tablet | | | | | | + + + +---------+--------+ + | NAPROXEN PO | Take by mouth | | 0 | | | | | Daily. | | | | 7 | + + + +---------+--------+ + | POTASSIUM PO | Take 10 mcg by mouth | | 0 | | | | | Daily. | | | | 7 | + + + +---------+--------+ + | VERAPAMIL HCL PO | Take 500 mg by mouth | | 0 | | | | | Daily. | | | | 7 | + + + +---------+--------+ + documented as of this encounter Plan of Treatment Not on filedocumented as of this encounter Procedures + +--------+ + + + | Procedure Name | Priori | Date/Time | Associated Diagnosis | Comments | | | ty | | | | + +--------+ + + + | FL EPIDURAL STEROID | Routin | 06/24/2014 | Right lumbar | Results for this | | INJECTION LUMBAR | e | 12:49 PM | radiculopathy | procedure are in the | | TRANSFORAMINAL | | PDT | | results section. | + +--------+ + + + documented in this encounter Results FL DELMI Lumbar Transforaminal (06/24/2014 12:49 PM PDT) + + | Specimen | + + | | + + + + + | Narrative | Performed At | + + + | 06/24/2014 Transforaminal Epidural Steroid Injection Diagnosis: | [facility] | | Lumbar radiculopathy ICD-9 Code 724.4 She Mckeon | [facility] | | presents to the fluoroscopy suite for a fluoroscopically-guided | [facility] | | right L5-S1 transforaminal epidural steroid [...] ST. | [address] | [place] | [phone] | | [facility] | | [address] | | | - IMAGING | | | | + + + + + documented in this encounter Visit Diagnoses + + | Diagnosis | + + | Right lumbar radiculopathy Thoracic or lumbosacral neuritis or radiculitis, | | unspecified | + + documented in this encounter Administered Medications + +--------+ +------+------+------+ | Medication Order | MAR | Action | Dose | Rate | Site | | | Action | Date | | | | + +--------+ +------+------+------+ | betamethasone (CELESTONE | Given | 06/25/19 | 6 mg | | | | SOLUSPAN) injection 6 mg 6 mg, | | 15 12:59 | | | | | Other, ONCE, 06/24/14 at 1315, | | PM PDT | | | | | For 1 dose, Shake well. Not for | | | | | | | IV use., | | | | | | + +--------+ +------+------+------+ +---+---+ | | | +---+---+ + +-------+ +-------+---+---+ | iohexol (OMNIPAQUE 300) 300 | Given | 06/25/19 | 4 mLs | | | | mg/mL injection 4 mL 4 mL, | | 15 12:57 | | | | | INTRATHECAL, ONCE, 06/24/14 at | | PM PDT | | | | | 1315, For 1 dose | | | | | | + +-------+ +-------+---+---+ +---+---+ | | | +---+---+ + +-------+ +------+---+ + | lidocaine 1% injection 1 mL 1 | Given | 06/25/19 | 1 mL | | Other | | mL, Intradermal, ONCE, Sun | | 15 12:55 | | | (Comment | | 06/24/14 at 1315, For 1 dose | | PM PDT | | | ) | + +-------+ +------+---+ + +---+---+ | | | +---+---+ + +-------+ +------+---+---+ | sodium bicarbonate (NEUT) 4% | Given | 06/25/19 | 1 mL | | | | injection 1 mL 1 mL, | | 15 12:55 | | | | | Intravenous, ONCE, 06/24/14 at | | PM PDT | | | | | 1315, For 1 dose, Use for | | | | | | | addition to other parenteral | | | | | | | solutions., | | | | | | + +-------+ +------+---+---+ +---+---+ | | | +---+---+ documented in this encounter"
--- OUTSIDE RECORDS SUMMARY | ~2019-09-07 | XMS | Encounter Summary ---
Demographics + + + | Address | [address] | | | [place] [address] | + + + | Home Phone | | + + + | Preferred Language | Unknown | + + + | Marital Status | | + + + | Presybeterian Affiliation | [id number] | + + + | Race | Unknown | + + + | Ethnic Group | Unknown | + + + Author + + + | Author | [facility] | | | and Liorana | + + + | Organization | [facility] | | | and Liorana | [...] [place], [place] | | | | | [address] | | + + + + + | Leeann Bush | ECON | Unknown | | + + + + + Care Team Providers + +------+ + | Care Life Cycle Assessment Analyst Name | Role | Phone | + +------+ + | Apolinar Hernandez MD | PCP | | + +------+ + Reason for Referral Evaluate & Treat (Routine) +--------+ + + + + + | Status | Reason | Specialty | Diagnoses / | Referred By | Referred To | | | | | Procedures | Contact | Contact | +--------+ + + + + + | Closed | Specialty | Physical | Diagnoses | Candelario, | Reji | | | Services | Medicine and | SI | Apolinar | Mohinder Albarran MD | | | Required | Rehabilitatio | (sacroiliac) | MD Fareed | [address] | | | | n | joint | [address] | [place] | | | | | dysfunction | [place] | [place] | | | | | | [place], | [address] Phone: | | | | | | [place] [address] | [phone] | | | | | | Phone: | Fax: | | | | | | [phone] | [phone] | | | | | | Fax: | | | | | | | [phone] | | +--------+ + + + + + Reason for Visit + + + | Reason | Comments | + + + | New Patient | Back pain | + + + Evaluate & Treat (Routine) +--------+--------+ + + + + | Status | Reason | Specialty | Diagnoses / | Referred By | Referred To | | | | | Procedures | Contact | Contact | +--------+--------+ + + + + | Closed | | Physical | Diagnoses | David, | Candelario | | | | Medicine and | Low back | Apolinar | Apolinar | | | | Rehabilitatio | pain | MD Doug | MD Fareed | | | | n | Procedures | [address] | | | | | [place] OFFICE | [place] | [place] | | | | | CONSULTATION | [address] | [place] | | | | | NEW/ESTAB | [place], | [address] Phone: | | | | | PATIENT 60 | [place] | [phone] | | | | | MIN waiting | [address] | Fax: | | | | | MRI review | Phone: | [phone] | | | | | with Surgeon | [phone] | | | | | | | Fax: | | | | | | | [phone] | | +--------+--------+ + + + + Encounter Details +--------+---------+ + + + | Date | Type | Department | Care Team | Description | +--------+---------+ + + + | 04/30/ | Office | [facility] | Apolinar Palomino | SI (sacroiliac) | | 2015 | Visit | REHABILITATION | MD [address] | joint dysfunction | | | | MEDICINE [address] [place] | (Primary Dx); | | | | [address] [place] | [place] [address] | Mechanical low back | | | | [place] [address] | [phone] | pain; Myofascial | | | | [phone] | | muscle pain; | | | | | | Muscular | | | | | | deconditioning | +--------+---------+ + + + Social History + +-------+ [...] this encounter Last Filed Vital Signs + + + + + | Vital Sign | Reading | Time Taken | Comments | + + + + + | Blood Pressure | 137/67 | 04/30/2014 1:28 PM | | | | | PST | | + + + + + | Pulse | 60 | 04/30/2014 1:28 PM | | | | | PST | | + + + + + | Temperature | - | - | | + + + + + | Respiratory Rate | 16 | 04/30/2014 1:28 PM | | | | | PST | | + + + + + | Oxygen Saturation | - | - | | + + + + + | Inhaled Oxygen | - | - | | | Concentration | | | | + + + + + | Weight | 90.7 kg (200 lb) | 04/30/2014 1:28 PM | | | | | PST | | + + + + + | Height | 165.1 cm (5' 5") | 04/30/2014 1:28 PM | | | | | PST | | + + + + + | Body Mass Index | 33.28 | 04/30/2014 1:28 PM | | | | | PST | | + + + + + documented in this encounter Patient Instructions Patient Instructions Apolinar Palomino MD - 04/30/2014 2:24 PM PST1. Go to [employer] and look at the stationary bikes that have a large wheel in the front. Try some and see if you can get on them ok and they feel ok when you use them 2. Walk as much as possible and consider getting a 4 wheeled walker with a seat so you can sit if you get too tired. 3. Dr. Mendoza's office should call you for the Sacroiliac injection, if he doesn't daron l by one week, let us know. 4. I will see you in 6 weeks to see how the injection worked, but if you just got the inje ction when our office calls you, please reschedule out another 2-3 weeks so the injection ca n have time to work. documented in this encounter Progress Notes Apolinar Palomino MD - 04/30/2014 3:33 PM PSTI spent over 30 minutes face to face with the patient, over half in reviewing notes, including the MRI with the patient for both films and report, plus counseling, and education about the cause of her pain. They were unable to get the x-rays where they did a flexion and extension film around Novem cy 5. Dr. Whitehead reviewed the previous films and recommended this study be done and conservat benedict treatment. The MRI from April showed a sacral fracture but was not a surg ical lesion. She reports she fell about 1 and one half years ago and that was when she had the sacral fr acture. However she had back pain off and on before that. It has been progressively worse to the point of limiting her gait and standing. She has not tried chiropractic treatment. Physical therapy worked with balance and strengthening. Right hip x-ray also reviewed from March 25, 2014 it only showed mild osteoarthritis and it was reviewed with the patient Presently low back pain 6 on a scale of 10 but can be an 8. When she walks more than a blo ck it becomes severe enough to where she wants to sit down. She has occasional right greate r the left leg pain that radiates transiently to the foot, but mostly to the knees. No numb ness or tingling or weakness related to that. No bowel or bladder incontinence but has had recurrent UTI is and is seeing Dr. Matos for that. She has been on hydrocodone for years, 1-3 per day, but tizanidine only about a year. I ed ucated her that sometimes muscle relaxants can caused urinary retention and she will talk to Dr. Matos about that When asked where pain is she points mostly to the right SI area Physical exam: She is moderately obese, bmi about 32. She has point tenderness in the right SI joint and into the proximal gluteals and piriformi s muscle but not a lot in the greater trochanter. Hips are fairly level and SI joints move well bilaterally Lower extremity strength hips 3, knees and ankles 4/5 and feels light touch in the lower ex tremities Back flexion 70, extension 15, lateral bending 15 bilaterally pain bending to the right Impression: Sacral fracture about 1.5 years ago with resultant right SI dysfunction. Lumbosacral myofascial pain on tizanidine with good benefit Obesity and deconditioning: she needs to "use it or lose" and so needs a stationary bike fo eflow strengthening. Plan: Right SI injection Dr. Mendoza Stationary bike for strengthening since walk is limited Cold pack to right SI Consideration for an SI belt Followup [address] Lizamaectronically signed by Apolinar Palomino MD at 04/30/2014 3:43 PM PSTd ocumented in this encounter Plan of Treatment + + +--------+ + + | Name | Type | Priori | Associated Diagnoses | Order Schedule | | | | ty | | | + + +--------+ + + | Physical Medicine | Outpatient | Routin | SI (sacroiliac) | Ordered: 04/30/2014 | | Rehab, External - | Referral | e | joint dysfunction | | | AMB Referral | | | | | + + +--------+ + + documented as of this encounter Visit Diagnoses + + | Diagnosis | + + | SI (sacroiliac) joint dysfunction - Primary Disorders of sacrum | + + | Mechanical low back pain Lumbago | + + | Myofascial muscle pain Mylagia and myositis, unspecified | + + | Muscular deconditioning Muscular wasting and disuse atrophy, not elsewhere classified | + + documented in this encounter
--- OUTSIDE RECORDS SUMMARY | ~2019-09-07 | XMS | Encounter Summary ---
Demographics + + + | Address | [address] | | | [place] [address] | + + + | Home Phone | | + + + | Preferred Language | Unknown | + + + | Marital Status | | + + + | Jewish Affiliation | 1041 | + + + | Race | Unknown | + + + | Ethnic Group | Unknown | + + + Author + + + | Author | [facility] | | | and Liorana | + + + | Organization | [facility] | | | and Liorana [...] [place], [place] | | | | | [address] | | + + + + + | Leeann Bush | ECON | Unknown | | + + + + + Care Team Providers + +------+ + | Care Boilermaker Welder Name | Role | Phone | + +------+ + | Apolinar Hernandez MD | PCP | | + +------+ + Reason for Visit + + + | Reason | Comments | + + + | Back Pain | Lower back pain | + + + Evaluate & Treat (Routine) +--------+--------+ + + + + | Status | Reason | Specialty | Diagnoses / | Referred By | Referred To | | | | | Procedures | Contact | Contact | +--------+--------+ + + + + | Closed | | Neurosurgery | Diagnoses | Sitz, | Carine, | | | | | Lumbago | Apolinar | Nate Park DO | | | | | with | MD Doug | [address] | | | | | sciatica, | [address] | [address] | | | | | unspecified | [place] | [place], [place] | | | | | side Low | [address] | [address] Phone: | | | | | back pain | [place], | [phone] | | | | | Procedures | [place] | Fax: | | | | | [place] OFFICE | [address] | [phone] | | | | | CONSULTATION | Phone: | | | | | | NEW/ESTAB | [phone] | | | | | | PATIENT 60 | Fax: | | | | | | MIN | [phone] | | +--------+--------+ + + + + Encounter Details +--------+---------+ + + + | Date | Type | Department | Care Team | Description | +--------+---------+ + + + | 05/17/ | Office | [facility] | Reed Chicas, | Sacroiliitis (HCC) | | 2017 | Visit | NEUROSURGERY [address] | PA-C [address] | (Primary Dx); | | | | [address] | [address] [place] | Spondylosis of | | | | [place], [place] | [place] [address] | lumbar region | | | | [address] | [phone] | without myelopathy | | | | [phone] | | or radiculopathy | +--------+---------+ + + + Social History [...] + + + | Blood Pressure | 149/81 | 05/17/2016 10:04 AM | | | | | PST | | + + + + + | Pulse | 77 | 05/17/2016 10:04 AM | | | | | PST | | + + + + + | Temperature | - | - | | + + + + + | Respiratory Rate | - | - | | + + + + + | Oxygen Saturation | - | - | | + + + + + | Inhaled Oxygen | - | - | | | Concentration | | | | + + + + + | Weight | 86.4 kg (190 lb 6.4 | 05/17/2016 10:04 AM | | | | oz) | PST | | + + + + + | Height | 165.1 cm (5' 5") | 05/17/2016 10:04 AM | | | | | PST | | + + + + + | Body Mass Index | 31.68 | 05/17/2016 10:04 AM | | | | | PST | | + + + + + documented in this encounter Patient Instructions Patient Instructions Reed Chicas PA - 05/17/2016 10:52 AM PSTBased off of history an d physical examination I'm recommending that he see Dr. Mendoza for a right sided sacroil iac injection. Future treatment recommendations will be based on her response to these inje ctions. documented in this encounter Progress Notes Polina Urrutia, Finished Metal Repairer - 05/17/2016 10:13 AM PSTFormatting of this note might b e different from the original. DANILO Fregoso [address] [facility] [address] [place], [place] [address] FAX: NEUROSURGERY HISTORY AND PHYSICAL EXAMINATION CHIEF COMPLAINT: Chief Complaint Patient presents with Back Pain Lower back pain HISTORY OF PRESENT ILLNESS: The patient is a 76 y.o. female with the complaint of back chaparro n symptoms that began 7-10 years ago. The patient describes having pain after falling and im mediately noticed lower back and pelvic pain. This ultimately resolved but was intermittent ly symptomatic over the years. The symptoms have been gradually worsening. She rates the pain as 5/10. The symptoms are intermittent. She describes the pain as aching. The patient describes having no leg symptoms. she has apparently had intermittent leg sympt oms in the past and has received transforaminal epidural steroid injections. The last sever al months the majority of her pain has been on the right side on her low back near her right SI joint. She has had rare left SI joint pain as well. The patient does not report any change in bowel or bladder function recently. Her symptoms improve with rest. Her symptoms worsen with standing, sitting and walking. She has tried PT, Opioids, NSAIDS, Injections and Muscle relaxers. The patient is not curr ently taking opioids. These measures Have provided partial and temporary relief. Patient valdez d injection in July of 2014 on right sided L5-S1 TFESI and stated she had a significant katiana unt of relief 70% for around three days. Patient also received injection in June of 2014 at the right sided L5-S1 with no relief. PAST MEDICAL HISTORY: Past Medical History Diagnosis Date Gastric reflux Osteoporosis Lumbar radiculopathy 06/16/2014 DDD (degenerative disc disease), lumbar 06/16/2014 Facet arthritis of lumbar region (HCC) 06/16/2014 Trochanteric bursitis of both hips 06/16/2014 Right knee pain 06/16/2014 Lumbago with sciatica, unspecified side Anemia Cervical spondylosis Depression with anxiety Essential hypertension HLD (hyperlipidemia) Migraine headache Osteoarthritis, shoulder Chronic UTI Vitamin B12 deficiency Vitamin D deficiency PAST SURGICAL HISTORY: Past Surgical History Procedure Laterality Date Finger trigger release 2007 Dr. Markham; Long finger Wrist surgery Left 2010 Dr. Markham; radius fixation Shoulder arthroplasty Left 2010 [facility]; reverse Shoulder herniarthroplasty Left 2010 Colonoscopy 2009 CURRENT MEDICATIONS: Current Outpatient Prescriptions Medication Sig Dispense Refill ALPRAZolam (XANAX) 0.25 mg tablet Take 0.125-0.25 mg by mouth nightly as needed. B Complex Vitamins (VITAMIN B COMPLEX) tablet Take 1 tablet by mouth Daily. budesonide (RHINOCORT ALLERGY) 32 mcg/nasal spray nasal spray 1 spray by Nasal route Da vidal. cholecalciferol (CHOLECALCIFEROL) 1000 UNITS TABS Take 2,000 Units by mouth Daily. Cyanocobalamin (VITAMIN B-12) [address] 5,000 mcg under the tongue Daily. famotidine (PEPCID) 20 mg tablet Take 20 mg by mouth 2 times daily. ferrous sulfate 325 mg tablet Take 325 mg by mouth daily (with breakfast). FLUoxetine (PROZAC) 20 mg capsule Take 40 mg by mouth as needed. fluticasone (FLONASE) 50 mcg/nasal spray 1 spray by Nasal route as needed. HYDROcodone-acetaminophen (NORCO) 7.5-325 mg per tablet Take 1 tablet by mouth every 8 hours as needed. 0 losartan-hydrochlorothiazide (HYZAAR) 100-25 MG per tablet Take 1 tablet by mouth Daily . meclizine (ANTIVERT) 25 mg tablet Take 12.5 mg by mouth Twice daily as needed. naproxen (NAPROSYN) 500 mg tablet Take 1 tablet by mouth Twice daily as needed. 0 SUMAtriptan (IMITREX) 50 mg tablet Take 50 mg by mouth as needed for Migraine. tiZANidine (ZANAFLEX) 4 mg tablet Take 8 mg by mouth every 8 hours as needed. trimethoprim (TRIMPEX) 100 MG tablet Take 100 mg by mouth 2 times daily. verapamil (CALAN SR) 240 mg SR tablet Take 240 mg by mouth Daily. No current facility-administered medications for this visit. ALLERGIES: Allergies Allergen Reactions Alendronate Other (See Comments) Abdominal pain Codeine Gabapentin Other (See Comments) Malaise Niacin And Related Pregabalin Swelling Edema; Malaise Sulfa Antibiotics Diarrhea and Nausea And Vomiting Tetanus Toxoids Hives Hives and Fever. Trazodone Other (See Comments) Dysphoria Atorvastatin Hives and Rash Lovastatin Hives and Rash Myalgias SOCIAL HISTORY: The patient reports that she has never smoked. She has never used smokeless tobacco. She r eports that she drinks alcohol. She reports that she does not use illicit drugs. FAMILY HISTORY: Family History Problem Relation Age of Onset Arthritis Father Heart disease Father Rheum arthritis Mother Heart disease Mother Stillborn Son No Known Problems Daughter No Known Problems Paternal Grandfather No Known Problems Paternal Grandmother No Known Problems Maternal Grandfather No Known Problems Maternal Grandmother REVIEW OF SYSTEMS: GENERALLY: No fever, no night sweats, no anemia, no fatigue, no recent profound weight ch anges. EYES: No eye problems, no use of corrective lenses, no eye injury, no double vision, no bl indness. EARS, NOSE, AND THROAT: No changes in taste or smell, no hearing difficulty, no ringing in the ears, no ear drainage, no dizziness, no voice changes, no difficulty swallowing, no sig nificant snoring, no sleep apnea, no sinus problems, + major dental work. NEUROLOGICALLY: Please see the review of systems discussed above in the history of present illness. In addition, the patient has back pain and migraine. PSYCHIATRIC: No depression, no sleep disorders, no anxiety, no bipolar disorder, no psycho tic episodes. CARDIOVASCULAR: No heart attacks, no heart murmur, no heart fluttering, no chest pain, no ankle swelling. LUNG DISEASE: No shortness of breath, no cough, no tuberculosis, no bloody cough, no asth ma, no emphysema/COPD. GASTROINTESTINAL: No bowel disease, no nausea or vomiting, no rectal bleeding, no constipa tion, no stool incontinence, no liver disease, no gallbladder disease, no abdominal pain, no ulcers. KIDNEY DISEASE: No urinary frequency, no painful or difficult urination, no incontinence. ENDOCRINE: No diabetes, no thyroid disease, no osteopenia or osteoporosis, no breast drain age. SKIN: No breast lumps, no skin changes, no rashes, no itches. HEMATOLOGIC/LYMPHATIC: No enlarged lymph nodes, no easy or unusual bleeding, no personal h istory of cancer. RHEUMATOLOGIC: No joint arthritis, no rheumatoid arthritis. PHYSICAL EXAMINATION: Blood pressure 149/81, pulse 77, height 1.651 m (5' 5"), weight 86.365 kg (190 lb 6.4 oz). Body mass index is 31.68 kg/(m^2). GENERAL: She Mckeon is in no acute distress with unlabored respirations. The patient does not appear uncomfortable throughout the exam today. HEENT: Head: Normocephalic/atraumatic with no areas of recent trauma. Eyes: Normal sclerae without icterus. Ears: No drainage or tenderness. Nasopharnyx: Clear without drainage. Oropharnyx: Clear without erythema. NECK (ANTERIOR): Supple and without palpable masses. CHEST: Clear to ausculation without crackles or wheeze. HEART: Regular rate and rhythm without murmurs. ABDOMEN: Soft, non-tender, non-distended, and without palpable masses. The patient is not o bese. SPINE: There is no tenderness of there cervical or thoracic spine. The lumbar spine shows there is no tenderness in the midline of the L1, L2, L3, L4, L5, S1 levels. To palpation, there is significant right myofascial tenderness L4-L5. There is significant pain to provacative testing of the right SI joint. There is no major deformity noted. EXTREMITIES: No cyanosis, clubbing, or edema. Distal pulses are palpable. .NEUROLOGICAL EXAM: MENTAL STATUS: The patient is awake, alert, and oriented. She follows simple and complex commands. Her speech is fluent, she comprehends speech well, and she repeats well. She has no apparent deficits with short or mcc memory. CRANIAL NERVES: II: Acuity is intact. Weber are full to confrontation. III, IV, : The pupils are reactive. Extraocular movements are intact. No ptosis is note d. V: Facial sensation is intact and symmetric. VII: Facial movements are symmetric. VIII: Hearing is intact bilaterally. IX, X: The uvula and palate move appropriately. XI: Shrug is equal bilaterally. XII: Tongue protrusion is midline. MOTOR EXAM: (5 IS NORMAL) * Indicates pain limited MUSCLE/ MOVEMENT: RIGHT LEFT Deltoids 5 5 Biceps 5 5 Triceps 5 5 Wrist Flexion 5 5 Wrist Extension 5 5 Median Intrinsics 5 5 Ulnar Intrinsics 5 5 Client Coordinator Strength 5 5 Hip Flexion 5 5 Hip Extension 5 5 Knee Flexion 5 5 Knee Extension 5 5 Dorsiflexion 5 5 Extensor Hallicus Longus 5 5 Plantarflexion 5 5 SENSORY EXAM: Sensory exam shows no diminished sensation to light touch or pain throughout the upper and lower extremities. REFLEXES: (2 OR 2+ IS NORMAL) REFLEX: RIGHT LEFT BICEPS 2+ 2+ BRACHIORADIALIS 2+ 2+ TRICEPS 2+ 2+ PATELLAR 2+ 2+ ACHILLES 2+ 2+ MENJIVAR'S ABSENT ABSENT PLANTAR DOWNGOING DOWNGOING GAIT: Gait is steady. PERIPHERAL NERVE/MISC: Tinel is negative at the wrists and elbows bilaterally. Phalen is negative. Straight leg raise is negative bilaterally. Lasha's test of the hips is negative bilaterally. TEST AND RADIOGRAPHIC REVIEW: The patient's imaging was reviewed in detail with the patient today during the visit. The MRI from 2016 shows mild to moderte stenosis at L3-L4 and significant thickening ligament of flavum joint. MRI also shows Joint effusion with the facet joint at L3-L4. Lumbar x-rays show no major instability. No Scoliosis. No significant DDD. Good lumbar josy disis. ASSESSMENT: NEUROSURGICAL DIAGNOSES: Encounter Diagnoses Name Primary? Sacroiliitis (HCC) Yes Spondylosis of lumbar region without myelopathy or radiculopathy GENERAL DIAGNOSES: Past Medical History Diagnosis Date Gastric reflux Osteoporosis Lumbar radiculopathy 06/16/2014 DDD (degenerative disc disease), lumbar 06/16/2014 Facet arthritis of lumbar region (HCC) 06/16/2014 Trochanteric bursitis of both hips 06/16/2014 Right knee pain 06/16/2014 Lumbago with sciatica, unspecified side Anemia Cervical spondylosis Depression with anxiety Essential hypertension HLD (hyperlipidemia) Migraine headache Osteoarthritis, shoulder Chronic UTI Vitamin B12 deficiency Vitamin D deficiency PLAN: She Mckeon presented today, and it was a pleasure seeing this patient and assessing h er neurologic problems. The patient has mild spinal stenosis with mild degenerative findings throughout her lumbar spine. However, at today's visit, the predominance of her symptoms are in her lower back on the right side and are consistent with sacroiliitis. For this, I'm sending her to see Dr. Mendoza for a right sided SI joint injection. Depending on her symptoms he may decide to inject the left SI joint as well. Although patient has received 70% benefit from previous transforaminal epidural steroid inj ections she does not feel that her day-to-day symptoms would warrant any significant back burns rgery at this time. Therefore, at this time, she wishes to continue with conservative treat ment intervention. We will see her in the future on an as-needed basis. ELECTRONICALLY SIGNED BY: DANILO Fregoso, 05/17/2016 11:45 documented in this encounter Plan of Treatment Not on filedocumented as of this encounter Visit Diagnoses + + | Diagnosis | + + | Sacroiliitis (HCC) - Primary Sacroiliitis, not elsewhere classified | + + | Spondylosis of lumbar region without myelopathy or radiculopathy Lumbosacral | | spondylosis without myelopathy | + + documented in this encounter
--- OUTSIDE RECORDS SUMMARY | ~2019-09-07 | XMS | Clinical Summary ---
Demographics + + + | Address | [address] | | | [place] [address] | + + + | Home Phone | | + + + | Preferred Language | Unknown | + + + | Marital Status | | + + + | Episcopalian Affiliation | [id number] | + + + | Race | Unknown | + + + | Ethnic Group | Unknown | + + + Author + + + | Author | [facility] | | | and Liorana | + + + | Organization | [facility] | | | and Liorana [...] [place], [place] | | | | | [address] | | + + + + + | Leeann Bush | ECON | Unknown | | + + + + + Care Team Providers + +------+ + | Care School Occupational Therapist Name | Role | Phone | + +------+ + | Apolinar Hernandez MD | PCP | | + +------+ + Allergies + [...] | mouth Twice daily | | | 720 | | e | | tablet | [...] + + + + | Name | Administration Dates | Next Due | + + + [...] +---------+ + | Arthritis | Father | FOERST | | | | | JIGNA | [...] + | Blood Pressure | 193/84 | 05/25/2016 2:31 PM | | | | | PST | | + + + + + | Pulse | 78 | 05/25/2016 2:31 PM | | | | | PST | | + + + + + | Temperature | - | - | | + + + + + | Respiratory Rate | 15 | 08/17/2014 2:42 PM | | | | | PDT | | + + + + + [...] | | + + + + + Plan of Treatment + + + + + | Health Maintenance | Due Date | Last Done | Comments | + + + + + | Breast Cancer | | | | | Screening | 5 | | | + + + + + | Vaccine: | | 04/16/2011 | | | Pneumococcal (PPSV23 | 5 [...] 01/14/2014 | | | (Season Ended) | 0 | | | + + + + + Results Not on filefrom Last 3 Months Insurance + +--------+ +--------+ +---------+--------+ | Payer | Benefi | Subscriber | Effect | Phone | Address | Type | | | t Plan | ID | benedcit | | | | | | / | | Dates | | | | | | Group | | | | | | + +--------+ +--------+ +---------+--------+ | HUMANA | HUMANA | [id number] | | [phone] | | Indemn | | | MDCR | | 015-Pr | 4 | | ity | | | SUPPL | | esent | | | | + +--------+ +--------+ +---------+--------+ | MEDICARE | MEDICA | [id number] | 12/16/19 | [phone] | | Medica [...] | [birth year] | [address] | | | al/Fam | | 1940 | [phone] | [place] [address] | | | vidal | | | 0 (Home) | | + +--------+ +--------+ + + Advance Directives + + + + + | Type | Date Recorded | Patient | Explanation | | | | Lead Cargo Mover | | + + + + + | Power of | | | | | Process Planner | | | | + + + + + | Advance | 07/08/2014 2:48 | | @ home | | Directive | PM | | | + + + + +
--- OUTSIDE RECORDS SUMMARY | ~2019-09-07 | XMS | Encounter Summary ---
Demographics + + + | Address | [address] | | | [place] [address] | + + + | Home Phone | | + + + | Preferred Language | Unknown | + + + | Marital Status | | + + + | Anabaptist Affiliation | [id number] | + + + | Race | Unknown | + + + | Ethnic Group | Unknown | + + + Author + + + | Author | [facility] | | | and Liorana | + + + | Organization | [facility] | | | and Liorana | [...] [place], [place] | | | | | [address] | | + + + + + | Leeann Bush | ECON | Unknown | | + + + + + Care Team Providers + +------+ + | Care Dental Mold Maker Name | Role | Phone | + +------+ + | Apolinar Hernandez MD | PCP | | + +------+ + Encounter Details +--------+ + + + + | Date | Type | Department | Care Team | Description | +--------+ + + + + | 05/22/ | Orders Only | [facility] | Mohinder Mendoza | Sacroiliitis, not | | 2017 | | PHYSIATRY [address] | T, MD [address] | elsewhere classified | | | | [address] | [facility] [place] [facility] [place] | ([facility]) (Primary Dx) | | | | [facility], [place] | [address] | | | | | [address] | | | | | | [phone] | | | +--------+ + + + [...] filedocumented as of this encounter Results [place] Sacroiliac Injection Right (05/25/2016 2:18 PM PST) + + | Specimen | + + | | + + + + + | Narrative | Performed At | + + + | 05/25/2016 Sacroiliac Joint Injection Clinical History: Sacroiliitis | [facility] | | ICD-10 M46.1 She Mckeon presents to the fluoroscopy suite | [facility] | | for a fluoroscopically guided right sacroiliac joint steroid [facility] | | injection as part of conservative management for chronic pain with | - IMAGING | | sacroiliitis. After informed consent was obtained the patient laid | | | in the prone position on the fluoroscopy table. The right sacroiliac | | | joint was identified under fluoroscopic guidance. The area was | | | prepped and draped in sterile fashion. A 25 gauge 1-1/2 inch needle | | | was inserted into this region and approximately 3 mL of buffered 1% | | | lidocaine was infused. Then a 22 gauge spinal needle was inserted into | | | the inferior joint space under fluoroscopic guidance. Confirmation | | | into the sacroiliac joint was obtained with infusion of | | | approximately 1 mL of Omnipaque contrast which showed flow within | | | the joint space. Then a combination of 1 mL 1% lidocaine and 1 mL of | | | 40 mg per milliliter Kenalog was infused. The patient tolerated the | | | procedure well without complications. Pre- and post procedure blood | | | pressures were stable. The patient was given verbal as well as | | | written followup instructions. Prior to the start of the | | | procedure the following were performed and verified including | | | correct patient identity, correct site/side marked and visible, | | | agreement of the procedure to be done, correct patient positioning | | | and an accurate procedure consent form. Any safety precautions based | | | on clinical history and/or medications have been addressed. I | | | personally performed the procedure above. Estimated blood loss: | | | Minimal Complications: None Findings: As expected Anesthesia: | | | Local 1% Lidocaine | | + + + + + + + + | Performing | Address | City/State/Zipcode | Phone Number | | Organization | | | | + + + + + | [address] | [address] | [place] | [phone] | | [facility] | | [address] | | | - IMAGING | | | | + + + + + documented in this encounter Visit Diagnoses + + | Diagnosis | + + | Sacroiliitis, not elsewhere classified (HCC) - Primary Sacroiliitis, not elsewhere | | classified | + + documented in this encounter"
--- OUTSIDE RECORDS SUMMARY | ~2019-09-07 | XMS | Encounter Summary ---
Demographics + + + | Address | [address] | | | [place] [address] | + + + | Home Phone | | + + + | Preferred Language | Unknown | + + + | Marital Status | | + + + | Episcopalian Affiliation | 1041 | + + + | Race | Unknown | + + + | Ethnic Group | Unknown | + + + Author + + + | Author | [facility] | | | and Liorana | + + + | Organization | [facility] | | | and [...] [place], [place] | | | | | [address] | | + + + + + | Leeann Bush | ECON | Unknown | | + + + + + Care Team Providers + +------+ + | Care Reading Recovery Teacher Name | Role | Phone | + +------+ + | Apolinar Hernandez MD | PCP | | + +------+ + Reason for Visit + + + | Reason | Comments | + + + | Back Pain | low back radiating to R>L leg | + + + Evaluate & Treat (Routine) +--------+ + + + + + | Status | Reason | Specialty | Diagnoses / | Referred By | Referred To | | | | | Procedures | Contact | Contact | +--------+ + + + + + | Closed | Specialty | Physical | Diagnoses | Candelario, | Reji, | | | Services | Medicine and | SI | Apolinar | Mohinder Albarran MD | | | Required | Rehabilitatio | (sacroiliac) | MD Fareed | [address] | | | | n | joint | [address] | [facility] | | | | | dysfunction | [place] | [place] | | | | | | [place], | [address] Phone: | | | | | | [place] [address] | [phone] | | | | | | Phone: | Fax: | | | | | | [phone] | [phone] | | | | | | Fax: | | | | | | | [phone] | | +--------+ + + + + + Encounter Details +--------+---------+ + + + | Date | Type | Department | Care Team | Description | +--------+---------+ + + + | 06/16/ | Office | [facility] | Mohinder Mendoza | Osteoporosis | | 2015 | Visit | PHYSIATRY [address] | T, [address] | (Primary Dx); Right | | | | [address] | [place] | lumbar | | | | [place] | [address] | radiculopathy; DDD | | | | [address] | | (degenerative disc | | | | [phone] | Ronal, | disease), lumbar; | | | | | [place] [address] | Facet arthritis of | | | | | [address] | lumbar region; | | | | | [place] [address] | Trochanteric | | | | | [phone] | bursitis of both | | | | | | hips; Right knee | | | | | | pain | +--------+---------+ + + + Social History [...] + + + | Blood Pressure | 160/87 | 06/16/2014 8:18 AM | | | | | PST | | + + + + + | Pulse | 83 | 06/16/2014 8:18 AM | | | | | PST [...] + + + + | Weight | 86.2 kg (190 lb) | 06/16/2014 8:18 AM | | | | | PST | | + + + + + | Height | 165.1 cm (5' 5") | 06/16/2014 8:18 AM | | | | | PST | | + + + + + | Body Mass Index | 31.62 | 06/16/2014 8:18 AM | | | | | PST | | + + + + + documented in this encounter Patient Instructions Patient Instructions Jeane Stern, Master of Arts - 06/16/2014 9:02 AM PST Follow-up at the hospital thirty minutes before your scheduled procedure to allow for time to check in. You may eat and drink as usual on the day of the procedure. If you are scheduled for an epidural injection do not take any blood thinning medications f or at least 5-7 days prior to your procedure unless you have been instructed by another phys ician not to discontinue blood thinning medications. If you are having a procedure other than an epidural injection (i.e. facet injection, media l branch block, SI joint injection or other joint injection) it is not absolutely necessary to discontinue blood thinning medications but doing so will decrease the risk of bruising or bleeding. If you have had a prior stroke, DVT or PE or if you are taking blood thinning medication be cause you have atrial fibrillation, a prosthetic cardiac valve replacement or heart stenting do not stop taking your blood thinning medications unless you have permission from your car diologist or primary care provider. All other medications should be taken as usual on the day of the procedure. Common blood thinning medications include: Aspirin (a baby aspirin is o.k.) Ibuprofen (Advil or Motrin) Naproxen (Aleve) Nabumetone (Relafen) Clopidogrel (Plavix) Dipyridamole/ASA (Aggrenox) Warfarin (Coumadin) Dabigatran (Pradaxa) Rivaroxaban (Xarelto) There are many others. If you have questions about your medications and whether or not you should stop any medications please contact our office. If you are having an epidural injection or if you take any medication for relaxation/sedati on on the day of the procedure you must provide a oil truck driver to take you home. For all procedur es it is recommended that someone else drive you home. documented in this encounter Progress Notes Mohinder Mendoza MD - 06/16/2014 8:10 AM PST CHIEF COMPLAINT: Low back pain HISTORY OF PRESENT ILLNESS: The patient is a 74 y.o. female being seen today at the [facility] of Dr. Hernandez for complaints of low back pain, right greater than left that began one to one and a half year ago. The symptoms began after after no known injury or insult. The patie nt did also mention right knee pain at the end of her visit today. This has been an issue f or years. That pain changes with the weather. She does not think she has had any imaging o f the knee yet. Her symptoms worsen with bending over and lifting, vaccuuming. Her symptoms improve with nothing in particular, muscle relaxers and hydrocodone/apap do he lp. Since the symptoms began, she has noticed that symptoms have been chronic. She describes th e pain as a aching feeling. She rates the pain as 4 on scale of 1-10. The patient also describes leg symptoms that occur on both sides. The leg symptoms account for greater than or equal to 50% of her symptoms. The leg symptoms are constant and the sy mptoms travels from the right side of the low back, across the right knee and down into the right foot, she describe it aching and following the L5 dermatome. The patient does not describe numbness of the legs. She does not report weakness of the l egs. She does not have bowel and bladder dysfunction. She does not have saddle anesthesia . Treatments for these complaints have included physical therapy over 1 year ago which did no t help, NSAIDS, hydrocodone/apap and tizanadine. Patient's medications, allergies, past medical, surgical, social and family histories were reviewed and updated as appropriate. PAST MEDICAL HISTORY: Past Medical History Diagnosis Date Anxiety Gastric reflux Migraine Osteoporosis Osteoporosis 06/16/2014 Lumbar radiculopathy 06/16/2014 DDD (degenerative disc disease), lumbar 06/16/2014 Facet arthritis of lumbar region 06/16/2014 Trochanteric bursitis of both hips 06/16/2014 Right knee pain 06/16/2014 PAST SURGICAL HISTORY: Past Surgical History Procedure Laterality Date Finger trigger release 2007 Dr. Markham Wrist surgery 2010 Dr. Markham Shoulder joint replacement 2010 [place] CURRENT MEDICATIONS: Current Outpatient Prescriptions Medication Sig Dispense Refill ALPRAZolam (XANAX) 0.25 mg tablet Take 0.25 mg by mouth nightly. Cholecalciferol (VITAMIN D PO) Take 1 capsule by mouth Twice a week. famotidine (PEPCID) 20 mg tablet Take 20 mg by mouth 2 times daily. FLUoxetine (PROZAC) 20 mg capsule Take 40 mg by mouth Daily. HYDROcodone-acetaminophen (NORCO) 5-325 mg per tablet Take 1 tablet by mouth every 6 ho urs as needed. losartan-hydrochlorothiazide (HYZAAR) 100-25 MG per tablet Take 1 tablet by mouth Daily . NAPROXEN PO Take by mouth Daily. POTASSIUM PO Take 10 mcg by mouth Daily. tiZANidine (ZANAFLEX) 4 mg tablet Take 4 mg by mouth every 8 hours as needed. trimethoprim (TRIMPEX) 100 MG tablet Take 100 mg by mouth 2 times daily. VERAPAMIL HCL PO Take 500 mg by mouth Daily. No current facility-administered medications for this visit. ALLERGIES: Allergies Allergen Reactions Tetanus Toxoids Hives Hives and Fever. SOCIAL HISTORY: The patient reports that she has never smoked. She has never used smokeless tobacco. She r eports that she drinks alcohol. She reports that she does not use illicit drugs. FAMILY HISTORY: Family History Problem Relation Age of Onset Arthritis Father Heart disease Mother Heart disease Father REVIEW OF SYSTEMS: GENERALLY: No fever, chills, no night sweats, no weight gain, no weight loss, no anemia, no fatigue. EYES: No eye problems, no impaired sight, + eye glasses/contacts, no eye injury, no double vision, no transient blindness. EARS, NOSE, THROAT and MOUTH: No change in sense taste/smell, no hearing difficulty, no ri nging in ears, no drainage from ears, no ear injury, no dizziness, no voice change, no diffi culty swallowing, + snoring, no sleep apnea/CPAP, no sinus trouble, + dental work. NEUROMUSCULAR: No numbness/pain of arms, no numbness/pain of legs, no awake with numbness/ pain, no weakness, no muscle aching, no coordination difficulty, no change in walk, no head injury, no neck injury, no back injury, no pain in neck, + pain in back, no stroke, no faint ing spells, no loss of consciousness, no tremor/shaking, no seizures, no headaches, + migrai darwin, no memory loss, no speech difficulty, no confusion, no numbness of face. PSYCHIATRIC: No depression, no difficulty sleeping, + anxiety, no bipolar disorder. CARDIOVASCULAR/PULMONARY: No heart attack, no heart murmur, no fluttering heart, no shortn ess of breath, no cough, no Tuberculosis, no chest pain, no swelling ankles, no bloody cough ing, no asthma, no COPD/emphysema. GASTROINTESTINAL: No bowel disease, no nausea/vomiting, no rectal bleeding/hemorroids, no constipation, no fecal/stool incontinence, no liver/gallbladder disease, no abdominal pain. GENITOURINARY: No frequent urination, no painful/difficult urination, + urinary incontinenc e, no bladder problems. ENDOCRINE: No diabetes, no thyroid disease, + osteoporosis, no drainage from breasts. INTEGUMENTARY/SKIN: No lump in breasts, no skin disease or skin changes, no rash/itch. HEMATOLOGIC: No enlarged lymph nodes, no easy or unusual bleeding, no cancer. RHEUMATOLOGIC: + arthritis, no rheumatoid arthritis PHYSICAL EXAMINATION: Blood pressure 160/87, pulse 83, height 1.651 m (5' 5"), weight 86.183 kg (190 lb). Body ma ss index is 31.62 kg/(m^2). GENERAL: The patient is well developed and well nourished. She does not appear uncomfortab le when seated. HEENT: HEAD/FACE: EYES: Normocephalic and atraumatic. There are no areas of recent trauma. Normal sclerae without icterus. SKIN Limited skin exam shows no significant rashes or lesions. There are not scars in the lumbar region. CHEST: The patient is in no acute respiratory distress with unlabored respirations. HEART: There is not lower extremity edema. ABDOMEN: The patient is obese. NEUROLOGIC: The patient is awake, alert, and oriented to time, place, person. She follows simple and complex commands. Her speech is fluent. She comprehends speech well. She has no apparent deficits with short or intermediate school teacher memory. She has appropriate fund of knowledge Cranial nerves 2-12 appear grossly intact. Sensory exam does not show diminished sensation to light touch in the upper and lower extr emities. REFLEX: RIGHT LEFT PATELLAR 2+ 2+ ACHILLES 2+ 2+ PLANTAR Downgoing Downgoing MUSCULOSKELETAL There is major palpable deformity of the spine with announced kyphosis. Straight leg raise and slump-sit are negative. Lasha's maneuver and impingement testing were negative for any groin pain but right leg did reproduce right lateral hip pain. There was tenderness to palpation over the bilateral greater trochanters. No tenderness to palpa tion over the sacral sulci. The patient localized the majority of the pain to the right L5- s1 region and down the right leg following the L5 distribution. Lumbar facet loading was po sitive to the right at L5-S1. Strength testing showed 5/5 strength throughout the lower ext remities. The patient was able to heel and toe walk without difficulty. There was no redne ss, effusion, warmth or joint line tenderness in the knees or ankles. RADIOGRAPHIC REVIEW: The patient's imaging was reviewed in detail with the patient today during the visit. The images show multilevel DDD, worst at L4-L5 off to the right where there is a disc bulge that could impinge on or irritate the right L5 nerve root. She did also have sacral insufficien cy fractures at that time. ASSESSMENT: Encounter Diagnoses Name Primary? Right lumbar radiculopathy DDD (degenerative disc disease), lumbar Facet arthritis of lumbar region Osteoporosis Yes Trochanteric bursitis of both hips Right knee pain PLAN: 1. The patient has tried PT, NSAIDS, muscle relaxants and hydrocodone/apap. Lumbar epidura l steroid injections were discussed in detail with the patient today. I offered a right L5-S 1 TFESI as the next step. 2. The patient does also have trochanteric bursitis of both hips. She was informed this may improve with an injection in the lower back. If this becomes more of an issue I would be h appy to treat that. 3. The right knee is likely arthritis. She was advised a knee injection may be warranted al though I did recommend she follow up with her PCP for this issue. He will likely get an xray of the knee and a knee injection. If he does not want to do the injection I would be happy to do it. 4. We will schedule a follow-up visit for 2 weeks post injection. If the patient continues to have pain I would consider giving her a prescription of gabapentin. 5. The patient had questions regarding surgical options. She was informed that if all the c onservative options fail we would need to obtain a new MRI of the lumbar spine before the re ferral is placed. ELECTRONICALLY EDITED AND SIGNED BY: Mohinder Mendoza MD, 06/16/2014 Scribed by: Jeane Stern MA for Dr. Mohinder Mendoza on 06/16/2014 documented in this encounter Plan of Treatment [...] radiculopathy ICD-9 Code 724.4 She Mckeon | [facility] | | presents to the fluoroscopy suite for a fluoroscopically-guided [facility] | | right L5-S1 transforaminal epidural steroid [...] + + | Performing | Address | City/State[facility] | Phone Number | | Organization | | | | + + + + + | [facility] | [address] | [place], [place] | [phone] | | [facility] | | [address] | | | - IMAGING | | | | + + + + + documented in this encounter Visit Diagnoses + + | Diagnosis | + + | Osteoporosis - Primary Osteoporosis, unspecified | + + | Right lumbar radiculopathy Thoracic or lumbosacral neuritis or radiculitis, | | unspecified | + + | DDD (degenerative disc disease), lumbar Degeneration of lumbar or lumbosacral | | intervertebral disc | + + | Facet arthritis of lumbar region Lumbosacral spondylosis without myelopathy | + + | Trochanteric bursitis of both hips Enthesopathy of hip region | + + | Right knee pain Pain in joint, lower leg | + + documented in this encounter
--- OUTSIDE RECORDS SUMMARY | ~2019-09-07 | XMS | Encounter Summary ---
Demographics + + + | Address | [address] | | | [place] [address] | + + + | Home Phone | | + + + | Preferred Language | Unknown | + + + | Marital Status | | + + + | Uatsdin Affiliation | 1041 | + + + | Race | Unknown | + + + | Ethnic Group | Unknown | + + + Author + + + | Author | [facility] | | | and Liorana | + + + | Organization | [facility] | | | and Liorana [...] [place], [place] | | | | | [address] | | + + + + + | Leeann Bush | ECON | Unknown | | + + + + + Care Team Providers + +------+ + | Care Hod Carrier Name | Role | Phone | + [...] [facility] | | | | | | Reji, | [address] | | | | | Sacroiliitis | Mohinder Albarran MD | [place], | | | | | ([facility]) | [address] | [place] | | | | | Procedures | [place] | [address] | | | | | ME INJECT SI | [place], [place] | Phone: | | | | | JOINT | [address] | [phone] | | | | | ARTHRGRPHY&/ | Phone: | Fax: | | | | | ANES/STEROID | [phone] | [phone] | | | | | W/IMAGE ME | Fax: | | | | | | | [phone] | | | | | | TRIAMCINOLON | | | | | | | E ACET INJ | | | | | | | NOS, 10 MG | | | | | | | Right SI | | | | | | | injection-Re | | | | | | | ferral from | | | | | | | Reed | | | | | | | Sucharda | | | +--------+--------+ + + + + Encounter Details +--------+ + + + + | Date | Type | Department | Care Team | Description | +--------+ + + + + | 05/25/ | Hospital | [facility] | Juliusvicenta Mohinder | Sacroiliitis, not | | 2017 | Encounter | MED CTR XRAY [address] | [address], [address] | elsewhere classified | | | | [address] [place] | [place] | ([facility]) | | | | [place] [address] | [phone] | | | | | [phone] | | | | | | | [place], [place] | | | | | | [place] [...] +---------+ + + | Blood Pressure | 193/84 | 05/25/2016 2:31 PM | | | | | PST | | + +---------+ + + | Pulse | 78 | 05/25/2016 2:31 PM | | | | | PST | | + +---------+ + + | [...] + + + +---------+ + + | B Complex Vitamins | Take 1 tablet by | | 0 | | | | (VITAMIN B COMPLEX) | mouth Daily. | | | | | | tablet | | | | | | + + + +---------+ + + | budesonide | 1 spray by Nasal | | 0 | | | | (RHINOCORT ALLERGY) | route Daily. | | | | | | 32 mcg/nasal spray | | | | | | | nasal spray | | | | | | + + + +---------+ + + | cholecalciferol | Take 2,000 Units by | | 0 | | | | (CHOLECALCIFEROL) | mouth Daily. | | | | | | 1000 UNITS TABS | | | | | | + + + +---------+ + + | Cyanocobalamin | Place 5,000 mcg | | 0 | | | | (VITAMIN B-12) 5000 | under the tongue | | | | | | MCG SUBL | Daily. | | | | | + + + +---------+ + + | famotidine | Take 20 mg by mouth | | 0 | | | | (PEPCID) 20 mg | 2 times daily. | | | | | | tablet | | | | | | + + + +---------+ + + | ferrous sulfate | Take 325 mg by mouth | | 0 | | | | 325 mg tablet | daily (with | | | | | | | breakfast). | | | | | + + + +---------+ + + | FLUoxetine | Take 40 mg by mouth | | 0 | | | | (PROZAC) 20 mg | as needed. | | | | | | capsule | | | | | | + + + +---------+ + + | fluticasone | 1 spray by Nasal | | 0 | | | | (FLONASE) 50 | route as needed. | | | | | | mcg/nasal spray | | | | | | + + + +---------+ + + | | Take 1 tablet by | | 0 | 03/06/20 | | | HYDROcodone-acetamin | mouth every 8 hours | | | 16 | | | ophen (NORCO) | as needed. | | | | | | 7.5-325 mg per [...] + + + +---------+ + + | meclizine | Take 12.5 mg by | | 0 | | | | (ANTIVERT) 25 mg | mouth Twice daily | | | | | | tablet | as needed. | | | | | + + + +---------+ + + | naproxen | Take 1 tablet by | | 0 | 02/21/20 | | | (NAPROSYN) 500 mg | mouth Twice daily | | | 16 | | | tablet | as needed. | | | | | + + + +---------+ + + | SUMAtriptan | Take 50 mg by mouth | | 0 | | | | (IMITREX) 50 mg | as needed for | | | | | | tablet | Migraine. | | | | | + + [...] + + + +---------+ + + | verapamil (CALAN | Take 240 mg by mouth | | 0 | | | | SR) 240 mg SR tablet | Daily. | | | | | + + + +---------+ + + documented as of this encounter Plan of Treatment Not on filedocumented as of this encounter Procedures + +--------+ + + + | Procedure Name | Priori | Date/Time | Associated Diagnosis | Comments | | | ty | | | | + +--------+ + + + | FL SACROILIAC | Routin | 05/25/2016 | Sacroiliitis, not | Results for this | | INJECTION RIGHT | e | 2:18 PM | elsewhere classified | procedure are in the | | | | PST | ([facility]) | results section. | + +--------+ + + + documented in this encounter Results FL Sacroiliac Injection Right (05/25/2016 2:18 PM PST) + + | Specimen | + + | | + + + + + | Narrative | Performed At | + + + | 05/25/2016 Sacroiliac Joint Injection Clinical History: Sacroiliitis | [facility] | | ICD-10 M46.1 She Mckeon presents to the fluoroscopy suite | [facility] | | for a fluoroscopically guided right sacroiliac joint steroid | [facility] | | injection as part of [...] + + | Performing | Address | City/[facility] | Phone Number | | Organization | | | | + + + + + | [address] | [address] | [place] | [phone] | | [facility] | | [address] | | | - IMAGING | | | | + + + + + documented in this encounter Visit Diagnoses + + | Diagnosis | + + | Sacroiliitis, not elsewhere classified (HCC) Sacroiliitis, not elsewhere classified | + + documented in this encounter Administered Medications + +--------+ +-------+------+------+ | Medication Order | MAR | Action | Dose | Rate | Site | | | Action | Date | | | | + +--------+ +-------+------+------+ | iohexol (OMNIPAQUE 300) 300 | Given | 05/25/19 | 4 mLs | | | | mg/mL injection 4 mL 4 mL, | | 17 2:26 | | | | | Other, ONCE, [facility] 05/25/16 at 1445, | | PM PST | | | | | For 1 dose | | | | | | + +--------+ +-------+------+------+ +---+---+ | | | +---+---+ + +-------+ +-------+---+---+ | lidocaine 1% injection 2 mL 2 | Given | 05/25/19 | 2 mLs | | | | mL, Other, ONCE, [facility] 05/25/16 at | | 17 2:28 | | | | | 1445, For 1 dose | | PM PST | | | | + +-------+ +-------+---+---+ +---+---+ | | | +---+---+ + +-------+ +-------+---+---+ | lidocaine buffered 1% injection | Given | 05/25/19 | 5 mLs | | | | 5 mL 5 mL, Other, ONCE, [facility] | | 17 2:24 | | | | | 05/25/16 at 1445, For 1 dose | | PM PST | | | | + +-------+ +-------+---+---+ +---+---+ | | | +---+---+ + +-------+ +-------+---+---+ | triamcinolone acetonide | Given | 05/25/19 | 40 mg | | | | (KENALOG-40) 40 mg/mL injection | | 17 2:28 | | | | | 40 mg 40 mg, Other, ONCE, [facility] | | PM PST | | | | | 05/25/16 at 1445, For 1 dose, Shake | | | | | | | well. Not for IV use., | | | | | | + +-------+ +-------+---+---+ +---+---+ | | | +---+---+ documented in this encounter"
--- OUTSIDE RECORDS SUMMARY | ~2019-09-07 | XMS | Encounter Summary ---
Demographics + + + | Address | [address] | | | [place] [address] | + + + | Home Phone | | + + + | Preferred Language | Unknown | + + + | Marital Status | | + + + | Hindu Affiliation | 1041 | + + + | Race | Unknown | + + + | Ethnic Group | Unknown | + + + Author + + + | Author | [facility] | | | and Liorana | + + + | Organization | [facility] [...] [place], [place] | | | | | [address] | | + + + + + | Leeann Bush | ECON | Unknown | | + + + + + Care Team Providers + +------+ + | Care Transfer Car Operator Drier Name | Role | Phone | + +------+ + | Apolinar Hernandez MD | PCP | | + +------+ + Reason for Visit + + + | Reason | Comments | + + + | Follow-up | post right L5-S1 TFESI on 06/24 | + + + | Back Pain | low back pain radiating down right leg | + + + Encounter Details +--------+---------+ + + + | Date | Type | Department | Care Team | Description | +--------+---------+ + + + | 07/08/ | Office | [facility] | Ronal, | Right lumbar | | 2014 | Visit | PHYSIATRY [address] | [address] | radiculopathy | | | | [address] | [address] | (Primary Dx); DDD | | | | [place] | [place] [address] | (degenerative disc | | | | [address] | [phone] | disease), lumbar; | | | | [phone] | | Facet arthritis of | | | | | | lumbar region; | | | | | | Trochanteric | | | | | | bursitis of both | | | [...] + + + | Blood Pressure | 130/67 | 07/08/2014 1:53 PM | | | | | PDT | | + + + + + | Pulse | 73 | 07/08/2014 1:53 PM | | | | | PDT [...] Weight | 86.2 kg (190 lb) | 07/08/2014 1:53 PM | | | | | PDT | | + + + + + | Height | 165.1 cm (5' 5") | 07/08/2014 1:53 PM | | | | | PDT | | + + + + + | Body Mass Index | 31.62 | 07/08/2014 1:53 PM | | | | | PDT | | + + + + + documented in this encounter Patient Instructions Patient Instructions Snehal Villeda PA-C - 07/08/2014 2:19 PM Elliott walk over to outpatient imaged at the hospital and get an xray of your knee. We will do a second epidural injection targeting the nerve pain you have, if we can do a st eroid injection into the knee we will do it at the same time. Please start taking the Gabapentin in the morning x 3 days, then start taking 1 pill in the AM and 1 pill in the PM as long as you are tolerating well. Follow-up at the hospital thirty minutes before [...] of the procedure you must provide a driver/refuse collector to take you home. For all procedur es it is recommended that someone else drive you home. documented in this encounter Progress Notes Snehal Villeda PA-C - 07/08/2014 2:41 PM PDTFormatting of this note might be differe nt from the original. CHIEF COMPLAINT: Chief Complaint Patient presents with Follow-up post right L5-S1 TFESI on 06/24 Back Pain low back pain radiating down right leg HISTORY OF PRESENT ILLNESS: The patient is a 74 y.o. female being seen today for follow up of low back pain with radiation into the right lower extermity. The patient has been seen for this complaint in the past, with initial visit started by Dr. Mendoza. Previously it was recommended that she receive a right L5/S1 epidural injection for lumbar radiculopathy. Her most recent lumbar MRI does show a disc bulge of L4/L5 with possible impingement of th e descending L5 nerve root on the right. She received this procedure on 06/24/14 and reports immediate relief both in her back and right leg, however the symptoms returned on day 4. Her symptoms worsen with bending over and lifting, vacuuming and garden work. Her symptoms improve with nothing in particular, muscle relaxers and hydrocodone/apap do he lp. Since the symptoms began, she has noticed that symptoms have been chronic. She describes th e pain as a aching feeling. She rates the pain as 5 on scale of 1-10. At this time the leg symptoms are worse than the back symptoms. The leg symptoms are consta nt and the symptoms travels from the right side of the low back, across the right knee and d own into the right foot, she describe it aching and following the L5 dermatome. She also has some right trochanteric bursitis and reports having right knee pain for quite some time now . She has not had any images of the right knee. She states the pain is severe and a consta nt aching. The patient does not describe numbness of [...] histories were reviewed and updated as appropriate. CURRENT MEDICATIONS: Current Outpatient Prescriptions Medication Sig Dispense Refill ALPRAZolam (XANAX) 0.25 mg tablet Take 0.25 mg by mouth nightly. Cholecalciferol (VITAMIN D PO) Take 1 capsule by mouth Twice a week. famotidine (PEPCID) 20 mg tablet Take 20 mg by mouth 2 times daily. FLUoxetine (PROZAC) 20 mg capsule Take 40 mg by mouth Daily. gabapentin (NEURONTIN) 300 mg capsule Take 1 capsule by mouth 2 times daily. 60 capsul e 0 HYDROcodone-acetaminophen (NORCO) 5-325 mg per tablet Take [...] Reactions Tetanus Toxoids Hives Hives and Fever. REVIEW OF SYSTEMS: A multisystem review of system checklist was reviewed with the patient and shows only the p ain and/or parasthesias and other complaints as in HPI. All remaining review of systems was negative. PHYSICAL EXAMINATION: Filed Vitals: 07/08/14 1353 BP: 130/67 Pulse: 73 PainSc: 5 PainLoc: Back Body mass index is 31.62 kg/(m^2). GENERAL: The patient [...] has no apparent deficits with short or meterman memory. She has appropriate fund of knowledge Cranial nerves 2-12 appear grossly intact. Sensory exam does not show diminished sensation to light touch in the upper and lower extr emities. REFLEX: RIGHT LEFT PATELLAR 2+ 2+ ACHILLES 2+ 2+ PLANTAR Downgoing Downgoing MUSCULOSKELETAL There is major palpable deformity of the spine with kyphosis. Straight leg raise and slump-sit are negative. Lasha's maneuver and impingement testing were negative for any groin pain but right leg did reproduce right lateral hip pain. There was no tenderness to palpation over the bilateral greater trochanters. No tenderness to pa lpation over the sacral sulci. The patient localized the majority of the pain to the right L5-S1 region and down the right leg following the L5 distribution. Lumbar facet loading was positive to the right at L5-S1. Strength testing showed 5/5 strength throughout the lower extremities. The patient was able to heel and toe walk without difficulty. There was no re dness, effusion, warmth or joint line tenderness in [...] Encounter Diagnoses Name Primary? Right lumbar radiculopathy Yes DDD (degenerative disc disease), lumbar Facet arthritis of lumbar region Trochanteric bursitis of both hips Right knee pain PLAN: 1. The patient has tried PT, NSAIDS, muscle relaxants and hydrocodone/apap. Lumbar epidura l steroid injections were discussed in detail with the patient today. I offered a second rig ht L5-S1 TFESI for cumulative effect. 2. The trochanteric bursitis does not appear to be a source of pain at this time. If it do es flare up, I would be more than happy to perform a trochanteric steroid injection. 3. The right knee is likely arthritis. She has not had any images of the knee at this point . I have ordered right knee xray in standing view. I have asked her to get images today. I f the xray's look to have arthritis and we can do a steroid injection, we can schedule this procedure to be done the same day as the back epidural injection. 4. We discussed medications. We agreed to start on gabapentin 300mg daily, then after three days to increase to BID. I discussed side effects. 4. We will schedule a follow-up visit for 2 weeks post injection. 5. The patient had questions regarding surgical options. She was informed that if all the c onservative options fail we would need to obtain a new MRI of the lumbar spine before the re ferral is placed. ELECTRONICALLY EDITED AND SIGNED BY: Snehal Villeda PA-C 07/08/2014 SUPERVISING PHYSICIAN: Dr. Ventura CANALES, who was present in the clinic today documented in t his encounter Plan of Treatment Not on filedocumented as of this encounter Results XR Knee Right 4 [...] | + + + + + | [facility] | [address] | [place] | [phone] | | [facility] | | [address] | | | - IMAGING | | | | + + + + + documented in this encounter Visit Diagnoses + + | Diagnosis | + + | Right lumbar radiculopathy - Primary Thoracic or lumbosacral neuritis or radiculitis, | [...]
--- OUTSIDE RECORDS SUMMARY | ~2019-09-07 | XMS | Encounter Summary ---
Demographics + + + | Address | [address] | | | [place] [address] | + + + | Home Phone | | + + + | Preferred Language | Unknown | + + + | Marital Status | | + + + | Congregation Affiliation | 1041 | + + + | Race | Unknown | + + + | Ethnic Group | Unknown | + + + Author + + + | Author | [facility] | | | and Liorana | + + + | Organization | [facility] | | | and Liorana [...] [place], [place] | | | | | [address] | | + + + + + | Leeann Bush | ECON | Unknown | | + + + + + Care Team Providers + +------+ + | Care Panel Laminator Name | Role | Phone | + +------+ + | Apolinar Hernandez MD | PCP | | + +------+ + Reason for Visit + + + | Reason | Comments | + + + | Follow-up | Back pain | + + + Encounter Details +--------+---------+ + + + | Date | Type | Department | Care Team | Description | +--------+---------+ + + + | 08/17/ | Office | [facility] | Apolinar Palomino | Lumbosacral | | 2015 | Visit | REHABILITATION | [address] | radiculopathy at L5 | | | | MEDICINE [address] | [place] | (Primary Dx); Facet | | | | [address] [place] | [place] [address] | syndrome, lumbar; | | | | [place] [address] | [phone] | Myofacial muscle | | | | [phone] | | pain | +--------+---------+ + + [...] + + + | Blood Pressure | 105/64 | 08/17/2014 2:42 PM | | | | | PDT | | + + + + + | Pulse | 83 | 08/17/2014 2:42 PM | | | [...] + + + + | Weight | 88.5 kg (195 lb) | 08/17/2014 2:42 PM | | | | | PDT | | + + + + + | Height | 165.1 cm (5' 5") | 08/17/2014 2:42 PM | | | | | PDT | | + + + + + | Body Mass Index | 32.45 | 08/17/2014 2:42 PM | | | | | PDT | | + + + + + documented in this encounter Patient Instructions Patient Instructions Apolinar Palomino MD - 08/17/2014 3:14 PM PDT1. Cold pack ri ght knee after gardening, increased walking, etc. 2. Call me in one month if your pain has returned again or gets worse, not better and I'll set you up for a facet injection. 3. If you do well, I'll see you as needed. documented in this encounter Progress Notes Apolinar Palomino MD - 08/17/2014 4:21 PM PDTI spent over 25 minutes, [id number] with the patient, over half in education and problem solving regarding her latest L5-S1 tra nsforaminal injection done on July 23, 2014. She reports similar benefit to that previously and that initially the pain was completely r esolved and she did really well until about 2 weeks ago and it started coming back. However not as bad as before. Overall 50% better. The pain is not present all the time, but still occurs whenever she does vacuuming, gardening, or increased activity. If she sits for 15 m inutes the pain will improve. Her low back pain is okay now at rest but can be moderately s evere with increased activity. Pain now tends to be more from the right lumbar area into th e right thigh and no longer much below the knee to the foot. No numbness or tingling relate d to this. No specific weakness but general weakness with increased pain. The right knee injection was done after the back injection and was of excellent benefit and I discussed cold packing after increased activity to prolong this benefit. She stopped her gabapentin because of dizziness and has done okay off that and I recommende d continuing off that. We reviewed her previous SI fracture. I also showed her models about SI dysfunction as wel l as facet problems, given that this trans-foramen injection while benefiting temporarily luly white in the long run not work and thus it may be a facet or SI problem. The transient benefit may come from the overlapping innervation of L5 and the L5-S1 facet. She has had physical therapy in the past that did symptomatic treatment, and also an exerci se program. She has failed both of those. She also has been taking naproxen and failed murtaza t also. Physical exam: She is moderately overweight. Left hip about 3/8 of an inch low. While both SI joints mov e on testing, the right is slightly less. However it is without pain. On palpation along the SI junction she does not report specific pain there, but about 1 inc h higher and in the paraspinals where the facet joints are as the worst pain that is fairly point tenderness. This was about the L5-S1 facet area. Lower extremity strength 5 over 5, normal sensation Back flexion 70, extension 10, lateral bending 10 bilaterally. Right hip internal and external rotation without significant gluteal or SI pain, however ri ght greater trochanter very tender with palpation Impression L5 radiculopathy, status post L5-S1 TF 5. This was done 07 23 2014 and gave excellent in itial benefit initially, but The right lumbar pain is returning as previously, while the sc iatica is still improved. Probable right L5-S1 facet syndrome: She has failed PT and naproxen. I will set her up for a facet injection if her symptoms do not respond to the TF I injection Right knee pain and osteoarthritisw: Much improved with injection, cold packs for increased activity Lumbosacral myofascial syndrome: Tizanidine when necessary Previous SI fracture: SI joints moved fairly well today Greater trochanter bursitis: Very tender on the right today and may need injection of that also Plan: In one month if the patient has a return of her lumbar pain, she will call me and I will se t her up for a facet injection at L5-S1 since she has failed PT, naproxen, and 2 TF I's Cold pack the right knee with increased activity Right greater trochanter bursitis injection also with next procedure if it comes to that Follow-up as needed if she continues improving. Cc: Dr. David Hernandez [place], [place]lect[place]ically signed by Apolinar Palomino MD at 07/2014 4:39 PM PDTdocumented in this encounter Plan of Treatment Not on filedocumented as of this encounter Procedures + +--------+ + + + | Procedure Name | Priori | Date/Time | Associated Diagnosis | Comments | | | ty | | | | + +--------+ + + + | IMAGING REPORT - | | 04/04/2016 | | Results for this | | EXTERNAL SCAN | | 12:00 AM | | procedure are in the | | | | PST | | results section. | + +--------+ + + + documented in this encounter Results IMAGING REPORT - EXTERNAL SCAN (04/04/2016 12:00 AM PST) + + + | Narrative | Performed At | + + + | Ordered by an | | | unspecified provider. | | + + + documented in this encounter Visit Diagnoses + + | Diagnosis | + + | Lumbosacral radiculopathy at L5 - Primary Thoracic or lumbosacral neuritis or | | radiculitis, unspecified | + + | Facet syndrome, lumbar Other symptoms referable to back | + + | Myofacial muscle pain Mylagia and myositis, unspecified | + + documented in this encounter
--- OUTSIDE RECORDS SUMMARY | ~2019-09-07 | XMS | Encounter Summary ---
Demographics + + + | Address | [address] | | | [place] [address] | + + + | Home Phone | | + + + | Preferred Language | Unknown | + + + | Marital Status | | + + + | Presybeterian Affiliation | 1041 | + + + | Race | Unknown | + + + | Ethnic Group | Unknown | + + + Author + + + | Author | [facility] | | | and Liorana | + + + | Organization | [facility] | | | and [place]ior[place] | + + + | Address | Unknown | + + + | Phone | Unavailable | + + + Support + + + + + | Name | Relationship | Address | Phone | + + + + + | Lang Martinez | ECON | [address] | | | | | [place], [place] | | | | | [address] | | + + + + + | Leeann Bush | ECON | Unknown | | + + + + + Care Team Providers + +------+ + | Care Supervisor Erection Shop Name | Role | Phone | + +------+ + | Apolinar Hernandez MD | PCP | | + +------+ + Encounter Details +--------+ + + + + | Date | Type | Department | Care Team | Description | +--------+ + + + + | 05/17/ | Hospital | [facility] | Nate Hawk, | Chronic right-sided | | 2017 | Encounter | MED CTR XRAY [address] | DO [address] | back pain, | | | | [place] | [address], [place] | unspecified back | | | | [place] [address] | [phone] | location | | | | [phone] | | | +--------+ + + + [...] + +--------+ + + + | XR LUMBAR SPINE 4 + | Routin | 05/17/2016 | Chronic | Results for this | | VW | e | 8:23 AM | right-sided back | procedure are in the | | | | PST | pain, unspecified | results section. | | | | | back location | | + +--------+ + + + documented in this encounter Results XR Lumbar Spine 4 [...] lumbar spine COMPARISON: 04/04/2016. FINDINGS: Bones | [facility] | | appear osteopenic. There is evidence [...] | + + + + + | [facility] | [address] | [place] | [phone] | | [facility] | | [id number] | | | - IMAGING | | | | + + + + + documented in this encounter Visit Diagnoses + + | Diagnosis | + + | Chronic right-sided back pain, unspecified back location | + + documented in this encounter"
--- OUTSIDE RECORDS SUMMARY | ~2019-09-07 | XMS | Encounter Summary ---
Demographics + + + | Address | [address] | | | [place] [address] | + + + | Home Phone | | + + + | Preferred Language | Unknown | + + + | Marital Status | | + + + | Holiness Affiliation | 1041 | + + + | Race | Unknown | + + + | Ethnic Group | Unknown | + + + Author + + + | Author | [facility] | | | and Liorana | + + + | Organization | [facility] | | | and Liorana [...] [place], [place] | | | | | [address] | | + + + + + | Leeann Bush | ECON | Unknown | | + + + + + Care Team Providers + +------+ + | Care Corn Popper Name | Role | Phone | + +------+ + | Apolinar Hernandez MD | PCP | | + +------+ + Reason for Visit + + + | Reason | Comments | + + + | Follow-up | | + + + Encounter Details +--------+---------+ + + + | Date | Type | Department | Care Team | Description | +--------+---------+ + + + | 07/13/ | Office | [facility] | Apolinar Palomino | Lumbosacral | | 2015 | Visit | REHABILITATION | MD [address] | radiculopathy at S1 | | | | MEDICINE [address] | [place] | (Primary Dx); Facet | | | | [address] [place] | [place] [address] | syndrome, lumbar; | | | | [place] [address] | [phone] | Piriformis syndrome | | | | [phone] | | of right side | +--------+---------+ + + + Social History [...] + + + | Blood Pressure | 111/62 | 07/13/2014 3:25 PM | | | | | PDT | | + + + + + | Pulse | 77 | 07/13/2014 3:25 PM | | | | | PDT | | + + + + + | Temperature | - | - | | + + + + + | Respiratory Rate | 16 | 07/13/2014 3:25 PM | | | | | PDT | | + + + + + | Oxygen Saturation | - | - | | + + + + + | Inhaled Oxygen | - | - | | | Concentration | | | | + + + + + | Weight | 86.2 kg (190 lb) | 07/13/2014 3:25 PM | | | | | PDT | | + + + + + | Height | 165.1 cm (5' 5") | 07/13/2014 3:25 PM | | | | | PDT | | + + + + + | Body Mass Index | 31.62 | 07/13/2014 3:25 PM | | | | | PDT | | + + + + + documented in this encounter Progress Notes Apolinar Palomino MD - 07/13/2014 4:59 PM PDTI spent over 25 minutes, face to face with the patient, over half reviewing multiple old reports that had occurred since my last visit since they all relate to her present symptomatology. First she had the right L5-S1 injection through Dr. Mendoza 06/24/2014. She had excellen t benefit for 4 days then much of the pain returned. However on specific questioning she re ports the worst pain which is in the right lumbar area and into the right SI and thigh area and that has not returned until the last few days. She also saw Tanvi Villeda whose tho rough assessment was appreciated. She noted some upper leg pain was actually knee pain and got knee x-rays. Those x-rays from July 08, 2014, were reviewed with the patient also. Gayathri dye will get an injection to the right knee next visit. She was also started on Neurontin, 300 mg twice a day and while it helps her pain she does have some transient balance issues at times and I reviewed this usually resolves with time. Sleep is okay Back pain severe episodically in the right lower lumbar area into the right greater trochan ter and tensor fascial conrado that severely limits her gait. Sometimes it goes below the knee s, but usually not. No numbness or tingling or weakness in the lower extremity. Right grea ter trochanter can be mild to moderately severe pain. Physical exam She is mildly overweight but gives a good history. Right greater trochanter only mildly te nder. Piriformis muscle is mild to moderately tender. Both SI joints move fairly well. Mi ld to moderate pain in right L5-SI area with palpation Right hip internal and external rotation was somewhat discomforting in the low back area an d slightly decreased range of motion compared to the left. Lower extremity strength 5 over 5 except right plantar flexion 4+. She feels light touch i n the lower extremity. Impression: Right leg sciatica, possible S1 radiculopathy. L5-S1 TFI scheduled for July 23, 2014 Right knee moderate osteoarthritis. Right knee injection July 23, 2014 Lumbosacral myofascial syndrome: On tizanidine and Neurontin History of sacral fracture with right SI dysfunction. SI joints moving better today Plan Continue Gabapentin 300 mg twice a day, but review after next visit and discontinue if she is better Right L5-S1 TF I and right knee injection July 23, 2014 Follow-up August 22, 2014. If she only gets short-term benefit this time, consider right SI in jection given the previous SI problems. Also consider right L5-S1 facet injection depending upon the area of involvement. Cc Dr. Hernandez, [place], [place] signed by Apolinar Palomino MD at 06/16 5:10 PM PDTdocumented in this encounter Plan of Treatment Not on filedocumented as of this encounter Visit Diagnoses + + | Diagnosis | + + | Lumbosacral radiculopathy at S1 - Primary Thoracic or lumbosacral neuritis or | | radiculitis, unspecified | + + | Facet syndrome, lumbar Other symptoms referable to back | + + | Piriformis syndrome of right side Lesion of sciatic nerve | + + documented in this encounter
--- OUTSIDE RECORDS SUMMARY | ~2019-09-07 | XMS | Encounter Summary ---
Demographics + + + | Address | [address] | | | [place] [address] | + + + | Home Phone | | + + + | Preferred Language | Unknown | + + + | Marital Status | | + + + | Bahai Affiliation | 1041 | + + + | Race | Unknown | + + + | Ethnic Group | Unknown | + + + Author + + + | Author | [facility] | | | and Liorana | + + + | Organization | [facility] | | | and [place]ior[place] | + + + | Address | Unknown | + + + | Phone | Unavailable | + + + Support + + + + + | Name | Relationship | Address | Phone | + + + + + | Lang Martinez | ECON | [address] | | | | | [place], [place] | | | | | [address] | | + + + + + | Leeann Bush | ECON | Unknown | | + + + + + Care Team Providers + +------+ + | Care Abnormal Psychology Teacher Name | Role | Phone | + +------+ + PCP | Unavailable | + +------+ + Encounter Details +--------+ + + + + | Date | Type | Department | Care Team | Description | +--------+ + + + + | 08/12/ | Hospital | [facility] | Mirza Frazier MD | | | 2008 | Encounter | MED CTR GENERIC OP | [address], [place] | | | | | CONV DEPT [address] | [address] [place], [place] | | | | | [address] [place], | [address] | | | | | [place] [address] | | | | | | [phone] | | | +--------+ + + + [...]
[~2019-09-07 22:28] MED LIST changes: +FAMOTIDINE20 MG PO; +PERCOCET 5-3251 EACH PO
--- OUTSIDE RECORDS SUMMARY | 2019-09-07 22:32 | XMS ---
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 Care History Medical/Surgical 08/20/2018 [facility] - Patient is currently established with [facility]. If patient is seen in the ED during business hours. Please contact [facility] at [facility]. Care Recommendation: This patient has had 5 or more Emergency Department visits in the last 12 months.\T\nbsp; Patient requires education on the scope and purpose of the ED as an acute care provider not a Primary Care Provider and should not be utilized for chronic conditions.\T\nbsp; These are guidelines and the provider should exercise clinical judgment when providing care. E.D. VISIT COUNT (12 MO.) [address] [place] [address] TOTAL 1 NOTE: Visits indicate total known visits. ED/UCC VISIT TRACKING (12 MO.) 09/07/2019 22:[address] [facility] [place] TYPE: Emergency COMPLAINT: - FALL INJURED LEFT SIDE INPATIENT VISIT TRACKING (12 MO.) No inpatient visits to display in this time frame [id number]
[2019-09-07] MEDS ORDERED: BUPRENORPHINE HC8 MG SL (23:33)
== END 2019-09-07 23:49 | disposition home or self-care (01) ==
LOC: ED 22:28
DX: S61.431A Puncture wound without foreign body of right hand, initial encounter (principal); S20.212A Contusion of left front wall of thorax, initial encounter; S40.012A Contusion of left shoulder, initial encounter; I10 Essential (primary) hypertension; E78.00 Pure hypercholesterolemia, unspecified; Z88.5 Allergy status to narcotic agent; Z88.7 Allergy status to serum and vaccine; Z79.899 Other long term (current) drug therapy; W01.0XXA Fall on same level from slipping, tripping and stumbling without subsequent striking against object, initial encounter
CPT/HCPCS: 71101; 73030; 99284-25

== ENCOUNTER 2020-12-27 15:02 | Emergency (ER) | payer MEDICARE, OTHER ==
[~2020-12-27] VITALS: Ht 165.1 cm; Wt 61.2 kg
[~2020-12-27 15:02] MED LIST changes: +BUPRENORPHINE HC8 MG SL
--- OUTSIDE RECORDS SUMMARY | 2020-12-27 15:10 | XMS ---
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 - Has Care Guidelines CARE PROVIDERS SHERIF WRIGHT Internal Medicine 08/20/2018-Current PHONE: [phone] Zheng has no Care Guidelines for this patient. Care History Medical/Surgical 09/10/2019 [facility] No appts scheduled, Requested MA contact Patient to schedule ED follow up appt. 08/20/2018 [facility] - Patient is currently established with [facility]. If patient is seen in the ED during business hours. Please contact CHWs at [facility]. Care Recommendation: This patient has had 5 [...] providing care. E.D. VISIT COUNT (12 MO.) 1 [facility] TOTAL 1 NOTE: Visits indicate total known visits. ED/UCC VISIT TRACKING (12 MO.) 12/27/2020 15:03 [place] [place] TYPE: Emergency COMPLAINT: - ABD PAIN, N/V, DIARRHEA INPATIENT VISIT TRACKING (12 MO.) No inpatient visits to display in this time frame [email or web address]
== END 2020-12-27 21:42 | disposition home or self-care (01) ==
LOC: ED 15:02
DX: R10.9 Unspecified abdominal pain (principal); I10 Essential (primary) hypertension; Z88.7 Allergy status to serum and vaccine; Z88.5 Allergy status to narcotic agent; Z88.8 Allergy status to other drugs, medicaments and biological substances; Z79.899 Other long term (current) drug therapy
CPT/HCPCS: 71046; 74177; 80053; 81001; 83690; 83735; 85025; 96361; 96374; 99284-25; J2405; J7030; Q9967

== ENCOUNTER 2022-12-31 14:35 | Emergency (ER) | payer MEDICARE, OTHER ==
[~2022-12-31] VITALS: Ht 165.1 cm; Wt 66.7 kg
[2022-12-31 15:04] LABS: BASOPHILS 2.4 % (0-2); EOSINOPHILS 2.7 % (0-6); HEMATOCRIT 32.4 % (35.0-50.0); HEMOGLOBIN 10.7 g/dL (12.0-18.0); LYMPHOCYTES 18.4 % (24-44); MCH 32.5 (27-36); MCHC 32.9 g/dl (30-36); MCV 98.6 fl (81-99); MONOCYTES 6.2 % (0-12); NEUTROPHILS 70.3 % (39-80); PLATELET COUNT 191 K/uL (140-440); RBC 3.28 M/ul (4.3-5.7); RDW 16.8 (10.5-15.0)
[2022-12-31] MEDS ORDERED: AMIODARONE HCL200 MG PO (15:09)
[2022-12-31] MEDS ORDERED: DULOXETINE HCL60 MG PO (15:10)
[2022-12-31] MEDS ORDERED: OMEPRAZOLE20 MG PO (15:10)
[2022-12-31] MEDS ORDERED: LOSARTAN-HCTZ1 EACH PO (15:10)
[2022-12-31] MEDS ORDERED: ELIQUIS5 MG PO (15:10)
[2022-12-31 15:16] LABS: ALBUMIN 4.1 g/dL (3.4-5.0); ALBUMIN/GLOBULIN RATIO 1.32 (1.1-2.4); ALCOHOL, MEDICAL <3 ng/dL (<3); ALKALINE PHOSPHATASE 64 U/L (46-116); ALT (SGPT) 14 U/L (14-59); ANION GAP 11.8 (7-21); AST (SGOT) 19 U/L (15-37); BILIRUBIN, TOTAL 0.8 ng/dL (0.2-1.0); BUN/CREATININE RATIO 10.52 (6.0-28.6); CARBON DIOXIDE 28 mmol/L (21-32); CHLORIDE 102 mmol/L (98-107); CREATININE, SERUM 1.52 mg/dL (0.55-1.02); GLOMERULAR FILTRATION RATE,EST 34 mL/min (>60); POTASSIUM 3.8 mmol/L (3.5-5.1); PROTEIN, TOTAL 7.2 g/dL (6.4-8.2); UREA NITROGEN 16 mg/dL (7-18)
[2022-12-31 17:00] VITALS: BP 160/62
== END 2022-12-31 17:00 | disposition home or self-care (01) ==
LOC: ED 14:35
PROVIDERS: Emergency Medicine
DX: S01.01XA Laceration without foreign body of scalp, initial encounter (principal); I48.91 Unspecified atrial fibrillation; I10 Essential (primary) hypertension; E78.00 Pure hypercholesterolemia, unspecified; Z88.7 Allergy status to serum and vaccine; Z88.5 Allergy status to narcotic agent; Z88.8 Allergy status to other drugs, medicaments and biological substances; Z79.01 Long term (current) use of anticoagulants; Z79.899 Other long term (current) drug therapy; W19.XXXA Unspecified fall, initial encounter
CPT/HCPCS: 12001; 36415; 70450; 72125; 80053; 85025; 99283-25; G0480

== ENCOUNTER 2023-04-15 20:24 | Emergency (ER) | payer MEDICARE, OTHER ==
[~2023-04-15] VITALS: Ht 165.1 cm; Wt 66.1 kg
[~2023-04-15 20:24] MED LIST changes: +AMIODARONE HCL200 MG PO; +DULOXETINE HCL60 MG PO; +ELIQUIS5 MG PO; +LOSARTAN-HCTZ1 EACH PO; +OMEPRAZOLE20 MG PO
[2023-04-15 20:39] LABS: HEMOGLOBIN 10.1 g/dL (12.0-18.0)
[2023-04-15 20:42] LABS: BASOPHILS 1.3 % (0-2); EOSINOPHILS 3.2 % (0-6); HEMATOCRIT 30.2 % (35.0-50.0); LYMPHOCYTES 20.3 % (24-44); MCH 33.7 (27-36); MCHC 33.3 g/dl (30-36); MCV 101.3 fl (81-99); MONOCYTES 10.8 % (0-12); NEUTROPHILS 64.4 % (39-80); PLATELET COUNT 161 K/uL (140-440); RBC 2.99 M/ul (4.3-5.7); RDW 13.6 (10.5-15.0)
[2023-04-15 20:51] LABS: INR 1.26 (0.80-1.30); PROTIME 15.4 Sec (11.2-14.2)
[2023-04-15 20:54] LABS: ALBUMIN 3.5 g/dL (3.4-5.0); ALBUMIN/GLOBULIN RATIO 1.17 (1.1-2.4); ALCOHOL, MEDICAL <3 ng/dL (<3); ALKALINE PHOSPHATASE 88 U/L (46-116); ALT (SGPT) 19 U/L (14-59); ANION GAP 11.9 (7-21); AST (SGOT) 17 U/L (15-37); BILIRUBIN, TOTAL 0.9 ng/dL (0.2-1.0); BUN/CREATININE RATIO 12.87 (6.0-28.6); CALCIUM 8.3 mg/dL (8.5-10.1); CARBON DIOXIDE 29 mmol/L (21-32); CHLORIDE 102 mmol/L (98-107); CREATINE KINASE 45 U/L (26-192); CREATININE, SERUM 1.32 mg/dL (0.55-1.02); GLOMERULAR FILTRATION RATE,EST 40 mL/min (>60); POTASSIUM 3.9 mmol/L (3.5-5.1); PROTEIN, TOTAL 6.5 g/dL (6.4-8.2); UREA NITROGEN 17 mg/dL (7-18)
[2023-04-15 21:17] LABS: ABO B; ANTIBODY SCREEN NEGATIVE; RH POSITIVE
[2023-04-15 21:36] LABS: INFLUENZA B NAA NEGATIVE (NEGATIVE); RESPIRATORY SYNCYTIAL VIR NAA NEGATIVE (NEGATIVE)
[2023-04-15 21:54] LABS: BILIRUBIN, URINE NEGATIVE (negative); BLOOD/HGB, URINE NEGATIVE (Negative); KETONE, URINE TRACE (Negative); LEUK ESTERASE, URINE SMALL (negative); NITRITE, URINE NEGATIVE (negative)
[2023-04-15 22:01] LABS: EPITHELIAL CELLS, URINE SQUAMOUS 1+ /lpf (0-1+); REFLEX CULTURE, URINE No (No)
[2023-04-15 22:02] LABS: AMPHETAMINES, URINE NEGATIVE (NEGATIVE); BARBITURATES, URINE NEGATIVE (NEGATIVE); BENZODIAZEPINE, URINE NEGATIVE (NEGATIVE); BUPRENORPHINE, URINE NEGATIVE (NEGATIVE); CANNABINOID, URINE NEGATIVE (NEGATIVE); COCAINE, URINE NEGATIVE (NEGATIVE); ECSTASY, URINE NEGATIVE (NEGATIVE); FENTANYL, URINE POSITIVE (NEGATIVE); METHADONE, URINE NEGATIVE (NEGATIVE); OPIATES, URINE NEGATIVE (NEGATIVE); OXYCODONE, URINE NEGATIVE (NEGATIVE); PHENCYCLIDINE, URINE NEGATIVE (NEGATIVE)
--- NOTE | 2023-04-15 22:17 | EKG ---
[facility] [address] [place] [address] Signed Sinus rhythm with 1st degree AV block Otherwise normal ECG When compared with ECG of 24-JAN-2018 13:52, IN interval has increased Questionable change in QRS axis Confirmed by Cecilia Dwyer MD () on 04/15/2023 10:16:50 PM Electronically Signed By: CECILIA DWYER MD 04/15/237 PATIENT NAME: SANAZ BENITO BATSHEVA Electrocardiogram DATE OF : 40 PHYSICIAN: CECILIA DWYER MD REPORT #: [id number] REPORT IS CONFIDENTIAL AND NOT TO BE RELEASED WITHOUT AUTHORIZATION
[2023-04-15 23:02] VITALS: BP 137/56
== END 2023-04-15 23:02 | disposition short-term general hospital (02) ==
LOC: ED 20:24
PROVIDERS: Internal Medicine
DX: S72.142A Displaced intertrochanteric fracture of left femur, initial encounter for closed fracture (principal); S00.03XA Contusion of scalp, initial encounter; R29.6 Repeated falls; I48.91 Unspecified atrial fibrillation; I10 Essential (primary) hypertension; E78.00 Pure hypercholesterolemia, unspecified; W18.09XA Striking against other object with subsequent fall, initial encounter; Y92.009 Unspecified place in unspecified non-institutional (private) residence as the place of occurrence of the external cause; Z79.01 Long term (current) use of anticoagulants; Z88.7 Allergy status to serum and vaccine; Z88.5 Allergy status to narcotic agent; Z88.8 Allergy status to other drugs, medicaments and biological substances; Z79.899 Other long term (current) drug therapy
CPT/HCPCS: 36415; 70450; 70486; 71045; 72125; 73502; 80053; 80307; 81001; 82553; 83690; 83735; 85025; 85610; 86850; 86900; 86901; 87502; 93005; 93010; C9803; G0480; J7121; U0002

== ENCOUNTER 2024-12-21 07:55 | Inpatient (IN) | payer MEDICARE, OTHER ==
[~2024-12-21] VITALS: Ht 165.1 cm; Wt 73.0 kg
[2024-12-21] VITALS (7 sets, daily range): BP systolic 125–12143; BP diastolic 5–77
[~2024-12-21 07:55] MED LIST changes: +CEPHALEXIN500 M1 PO
[2024-12-21 08:28] LABS: BASOPHILS 0.4 % (0.1-1.2); EOSINOPHILS 0.1 % (0.7-5.8); LYMPHOCYTES 3.7 % (19.3-51.7); MCH 35.0 PG (25.6-32.2); MCHC 32.7 g/dL (32.2-35.5); MCV 107.0 fL (79.4-94.8); MONOCYTES 8.4 % (4.7-12.5); NEUTROPHILS 86.9 % (34.0-71.1); RBC 3.00 M/uL (3.93-5.22)
[2024-12-21 08:37] LABS: INR 1.28 (0.80-1.30); PROTIME 15.5 Sec (11.2-14.2)
[2024-12-21 08:37] LABS: BLOOD/HGB, URINE LARGE (Negative); KETONE, URINE TRACE (Negative); LEUK ESTERASE, URINE MODERATE (negative); NITRITE, URINE POSITIVE (negative)
[2024-12-21 08:47] LABS: LACTIC ACID, BLOOD 0.9 mmol/L (0.4-2.0)
[2024-12-21 08:51] LABS: ALT (SGPT) 29.0 U/L (14-59); AST (SGOT) 30.0 U/L (15-37); GLOMERULAR FILTRATION RATE,EST 25.0 mL/min (>60); PROTEIN, TOTAL 6.4 g/dL (6.4-8.2); UREA NITROGEN 30.0 mg/dL (7-18)
[2024-12-21 09:03] LABS: BACTERIA, URINE 2+ /hpf (negative); CASTS, URINE NONE SEEN \\lpf; CRYSTALS, URINE NONE SEEN (0-1+); EPITHELIAL CELLS, URINE SQUAMOUS 1+ /lpf (0-1+); REFLEX CULTURE, URINE Yes (No)
[2024-12-21 09:09] LABS: CORONAVIRUS COVID-19 AG NEGATIVE (NEGATIVE)
[2024-12-21] MEDS ORDERED: ARIPIPRAZOLE10 MG PO (10:49)
[2024-12-21] MEDS ORDERED: ELIQUIS2.5 MG PO (10:50)
[2024-12-21] MEDS ORDERED: LOSARTAN POTASS50 MG PO (10:50)
[2024-12-21] MEDS ORDERED: QUETIAPINE FUMA50 MG PO (10:51)
[2024-12-21] MEDS ORDERED: MIRTAZAPINE30 MG PO (10:51)
[2024-12-21] MEDS ORDERED: GABAPENTIN600 MG PO (10:51)
[2024-12-21] MEDS ORDERED: FUROSEMIDE 20 MG/2 ML VIAL IV SCH (10:54)
[2024-12-21] MEDS ORDERED: ACETAMINOPHEN 325 MG TAB PO PRN (11:00)
--- NOTE | 2024-12-21 11:50 | NUR ---
PT ARRIVES TO [facility] ROOM, MOVED TO BED BY X3 STAFF. PT NOT RESPONDING, NOT FOLLOWING COMMANDS. PT REPEATING, "DON'T MAKE ME GET OFF THIS AIRPLANE, PLEASE DON'T LEAVE ME". THIS RN ATTEMPTS TO REORIENT PT STATING THAT SHE IS IN THE HOSPITAL AND THAT WE ARE HERE TO HELP HER, PT RESPONDS STATING, "YOU HAVE TO GO TO THEM, THEY HAVE MY BABY AND IF YOU DON'T GO GET HIM THEY ARE GOING TO KILL HIM". UPDATED ON PT ORIENTATION. VSS. O2 SATURATION 88% ON RA, OXIMASK WITH 2L O2 APPLIED, O2 SATURATION >92%. BED ALARM ON FOR SAFETY.
[2024-12-21] MEDS ORDERED: PHARMACY RENAL DOSE ADJUSTMENT 1 DOSE MISC PO SCH (12:00)
--- NOTE | 2024-12-21 15:59 | NUR ---
PATIENT RESTING IN BED. CALL LIGHT IS WITHIN REACH AND NO FURTHER NEEDS AT THIS TIME.
--- NOTE | 2024-12-21 17:24 | NUR ---
PATIENT IS LAYING IN BED. VITAL SIGNS AND I&OS WERE DONE. BRIEF WAS CHECKED AND DRY. PUREWICK WAS CHANGED. PATIENTS CALL LIGHT IS WITHIN REACH AND NO FURTHER NEEDS AT THIS TIME.
--- NOTE | 2024-12-21 18:36 | NUR ---
PT LYING IN BED, CONTINUES TO HAVE CONFUSION. WAFFLE OVERLAY PLACED ON PT BED, PT TOLERATES REPOSITIONING WELL. VSS. PT WEANED TO RA FROM 2L O2 VIA OXIMASK, O2 SATURATION >95%. PILLOW PLACED UNDER LEGS FOR HEEL PROTECTION. BED ALARM IN PLACE WELL FALL MATS FOR SAFETY. NO NEEDS IDENTIFIED AT THIS TIME. CALL LIGHT WITHIN REACH.
--- NOTE | 2024-12-21 19:54 | NUR ---
daugther in room, pt in bed sitting up position. daugther feeding papt pudinig and small sips of fluids. no cough at this time, pt tolerating well. bed alrm waffle mattress in place
--- NOTE | 2024-12-21 20:44 | NUR ---
daugther was here earlier and feed pt, pt tolerated puding and juice well, no cough. Pt on room air, unable to do CDB, lungs clear with faint crackles at bases. Irrregular heart rate. purewick in place, draining medium tea colored urine, skinc are done. attends in place, SL RAC patent. edema to lower legs/ankles, elevated with pillows, stats "you are sweet", "thank you". HOB sitting position in bed, meds given with opuding, tolerated well, able to sip water from straw. no cough. tolerated well. lungs listened again after above, no changes. no cough, Repositioned in bed, tolerated well, Leans towards Right in bed. Waffle mattress placed on earlier. Bed alrms in place
[2024-12-21] MEDS ORDERED: QUETIAPINE FUMARATE 25 MG TAB PO SCH (21:00)
[2024-12-21] MEDS ORDERED: MIRTAZAPINE 30 MG TAB PO SCH (21:00)
--- NOTE | 2024-12-21 23:05 | NUR ---
resting, eyes closed, no s/sx distress. waffle overlay in place, alarms on
[2024-12-22] VITALS (13 sets, daily range): BP systolic 143–174; BP diastolic 68–98
--- NOTE | 2024-12-22 01:15 | NUR ---
Awakens easily, on room air, lungs dim at baes, Required several cues for deep breathing during assessment. oral care done, abd soft. Was incontinent of soft green colored small bm and large amount of dark tea colored urine plus small amoaunt via purwick. skin care done, barrier cream to periarea. very tender. bruisiing along R upper mid labia and lower L outer labia area noted. unknown reason. clean attend and pure wick in place. All cares explained prior to . Bed alarm in place. Pt turned and repositioned
[2024-12-22 05:27] LABS: BASOPHILS 0.3 % (0.1-1.2); EOSINOPHILS 0.6 % (0.7-5.8); LYMPHOCYTES 7.8 % (19.3-51.7); MCH 34.1 PG (25.6-32.2); MCHC 32.3 g/dL (32.2-35.5); MCV 105.8 fL (79.4-94.8); MONOCYTES 10.9 % (4.7-12.5); NEUTROPHILS 79.9 % (34.0-71.1); RBC 3.28 M/uL (3.93-5.22)
[2024-12-22 05:47] LABS: ALT (SGPT) 21.0 U/L (14-59); AST (SGOT) 25.0 U/L (15-37); GLOMERULAR FILTRATION RATE,EST 35.0 mL/min (>60); PHOSPHORUS, INORGANIC 2.8 mg/dL (2.5-4.9); PROTEIN, TOTAL 7.1 g/dL (6.4-8.2); UREA NITROGEN 31.0 mg/dL (7-18)
--- NOTE | 2024-12-22 05:49 | NUR ---
on room air, purewick in place, draining small amounts tea colored urine. attends in place. repositions self in bed, Has placed legs over L rail side. repositioned with help. clear speech but not following or answering correctely. daily bed weight 64.9KG. tolerating sips of fluids
--- NOTE | 2024-12-22 07:25 | NUR ---
PT RESTING QUIET ALERT AT TIME OF SHIFT REPORT. ASSISTED TO REPOSITION IN BED ALARM IS SET RAILS UP AND MAT ON FLOOR NEXT TO BED. PT IS VISIBLE FROM RN STATION. FRESH H20 AND CALL LIGHT IN REACH
--- NOTE | 2024-12-22 07:46 | NUR ---
UR CLINICAL REVIEW: 2 MN FOR [facility] MEET INPT CRITERIA FOR UTI WITH NEED FOR IV ABX, SERIAL LABS AND MONITORING MEDICARE INPT 12/21/24 @ 1054 ORDER MATCHES REG NO AUTH REQUIRED PER MEDICARE GUIDELINES DISCHARGE TO HOME WHEN STABLE
[2024-12-22] MEDS ORDERED: MIRALAX17 GM PO (08:06)
[2024-12-22] MEDS ORDERED: B-121000 MC2 PO (08:11)
[2024-12-22] MEDS ORDERED: VITAMIN C500 M1 PO (08:12)
[2024-12-22] MEDS ORDERED: VITAMIN D325 MC2 PO (08:13)
[2024-12-22] MEDS ORDERED: FERATE240 MG PO (08:23)
[2024-12-22] MEDS ORDERED: TYLENOL EXTRA500 MG PO (08:26)
[2024-12-22] MEDS ORDERED: SENNA8.6 MG PO (08:27)
[2024-12-22] MEDS ORDERED: MELATONIN3 MG PO (08:27)
[2024-12-22] MEDS ORDERED: DULCOLAX10 MG PR (08:57)
[2024-12-22] MEDS ORDERED: FLEET ENEMA133 ML PR (08:58)
[2024-12-22] MEDS ORDERED: MILK OF MA400 MG/5 M PO (08:59)
[2024-12-22] MEDS ORDERED: DULOXETINE HCL 60 MG CAP PO SCH (09:00)
[2024-12-22] MEDS ORDERED: APIXABAN 2.5 MG TAB PO SCH (09:00)
--- NOTE | 2024-12-22 09:01 | NUR ---
MED REC COMPLETE
--- NOTE | 2024-12-22 09:21 | NUR ---
PT EATS 40% OF MORNING MEAL PRESENT. P/T IN TO WORK WITH PT AT THIS TIME.
--- NOTE | 2024-12-22 10:43 | NUR ---
PT REPOSITIONED CONTINUES RESTING EYES CLOSED PRESENT IN THE ROOM
--- NOTE | 2024-12-22 12:08 | NUR ---
Received lab results via PC from Eduardo in lab for this pt. She reports that blood cultures were taken on 12/21/24 at 0816 and 0824. Both anaerobic and aerobic at both times grew gram negative rods. Dr. Bee notified. Primary RN notified.
--- NOTE | 2024-12-22 12:47 | NUR ---
PT EATS LUNCH WITH STAFF ASSIST REMAINS RESTING IN BED DENIES DISCOMFORTS OR NEEDS OF
--- NOTE | 2024-12-22 13:43 | NUR ---
PATIENT IN BED RESTING WITH EYES CLOSED. VITALS AND I&O'S DONE AND CHARTED. CALL LIGHT IN REACH. BED ALARM ON. NO FURTHER NEEDS AT THIS TIME.
--- NOTE | 2024-12-22 13:51 | NUR ---
INTO SEE PATIENT. AT BEDSIDE. PERSONAL HEALTH INFORMATION REVIEWED. PATIENT LIVES AT [facility]. HAS A CANE AND WALKER. DA[place]. DAUGHTER TO TRANSPORT PATIENT WHEN SHE IS MEDICALLY CLEARED FOR DISCHARGE. LET KNOW WE CAN ALSO GET A WC VAN. DOES NOT WEAR OXYGEN OR CPAP. DENIES ANY DIFFCULT PAYING UTLITIES OR OBTAINING.
--- NOTE | 2024-12-22 14:07 | NUR ---
VISITOR AT BEDSIDE PT RESTING EYES CLOSED
--- NOTE | 2024-12-22 14:35 | NUR ---
PT UNDERGARMENT AND PURWIK CHANGED ALONG WITH LINENS CAIN CARE COMPLETED PT REPOSITIONED
--- NOTE | 2024-12-22 15:13 | NUR ---
DR DWYER NOTIFIED OF SUSTAINED ELEVATED HR HE IS HERE TO SEE HER
[2024-12-22] MEDS ORDERED: SODIUM CHLORIDE 0.9% 1,000 ML IV SCH (16:30)
--- NOTE | 2024-12-22 17:37 | NUR ---
PT ACTIVELY EATS YOGURT SHE IS POCKETING CHICKEN AND NOT SWALLOWING IT. REQUEST MADE TO KITCHEN FOR DIFFERENT TEXTURE
--- NOTE | 2024-12-22 19:10 | NUR ---
REPORT RECEIVED FROM NITIN ERNST. pt RESTING IN THE BED. BOARD UPDATED. pt DENIES ANY OTHER NEEDS AT THIS TIME. CALL LIGHT WITHIN REACH.
[2024-12-22] MEDS ORDERED: GABAPENTIN 300 MG CAP PO SCH (21:00)
--- NOTE | 2024-12-22 21:30 | NUR ---
ASSESSMENT AND VITAL SIGNS DONE. SCHEDULED MEDS ADMINISTERED. IV ASSESSED, WNL. BRIEF CHANGED. NEW PURE WICK PLACED. pt REPOSTIONED IN THE BED WITH PILLOW UNDER RIGHT SIDE. pt DENIES ANY OTHER NEEDS AT THIS TIME. CALL LIGHT WITHIN REACH.
--- NOTE | 2024-12-22 22:40 | NUR ---
pt RESTING IN THE BED WITH EYES CLOSED. RR EVEN AND UNLABORED. CALL LIGHT WITHIN REACH.
--- NOTE | 2024-12-22 23:28 | EKG ---
[facility] [address] [facility] [address] [place] [address] Signed Sinus tachycardia with 1st degree AV block Nonspecific ST abnormality Abnormal ECG When compared with ECG of 15-APR-2023 20:36, Vent. rate has increased BY [address] now depressed in Inferior leads T wave amplitude has decreased in Lateral leads Confirmed by Cecilia Dwyer MD () on 12/22/2024 11:28:17 PM Electronically Signed By: CECILIA DWYER MD 12/22/24 2328 PATIENT NAME: SANAZ BENITO Electrocardiogram DATE OF : 40 PHYSICIAN: CECILIA DWYER MD REPORT #: [id number] REPORT IS CONFIDENTIAL AND NOT TO BE RELEASED WITHOUT AUTHORIZATION
--- NOTE | 2024-12-22 23:58 | NUR ---
pt RESTING IN THE BED WITH EYES CLOSED. RR EVEN AND UNLABORED. CALL LIGHT WITHIN REACH.
[2024-12-23] VITALS (8 sets, daily range): BP systolic 120–152; BP diastolic 63–90
--- NOTE | 2024-12-23 01:50 | NUR ---
pt RESTING IN THE BED WITH EYES CLOSED. RR EVEN AND UNLABORED. CALL LIGHT WITHIN REACH.
--- NOTE | 2024-12-23 02:00 | NUR ---
pt IV ALARMING. NEW BAG OF IVF INFUSING PER ORDER. pt REPOSITIONED WITH PILLOW UNDER RIGHT SIDE. NO OTHER NEEDS AT THIS TIME. CALL LIGHT WITHIN REACH.
--- NOTE | 2024-12-23 03:18 | NUR ---
pt RESTING IN THE BED WITH EYES CLOSED. RR EVEN AND UNLABORED. CALL LIGHT WITHIN REACH.
--- NOTE | 2024-12-23 05:00 | NUR ---
IN RM TO DO VITAL SIGNS AND CHANGE BRIEF AND PURE WICK. IV INFUSING PER ORDER. pt DENIES ANY OTHER NEEDS AT THIS TIME. CALL LIGHT WITHIN REACH.
[2024-12-23 05:32] LABS: BASOPHILS 0.4 % (0.1-1.2); EOSINOPHILS 2.8 % (0.7-5.8); LYMPHOCYTES 8.5 % (19.3-51.7); MCH 34.3 PG (25.6-32.2); MCHC 32.8 g/dL (32.2-35.5); MCV 104.3 fL (79.4-94.8); MONOCYTES 9.0 % (4.7-12.5); NEUTROPHILS 79.0 % (34.0-71.1); RBC 3.27 M/uL (3.93-5.22)
[2024-12-23 05:56] LABS: ALT (SGPT) 13.0 U/L (14-59); AST (SGOT) 19.0 U/L (15-37); GLOMERULAR FILTRATION RATE,EST 46.0 mL/min (>60); PROTEIN, TOTAL 6.7 g/dL (6.4-8.2); UREA NITROGEN 30.0 mg/dL (7-18)
--- NOTE | 2024-12-23 07:34 | NUR ---
MORNING REPORT RECEIVED FROM KLEVER CHEN. PT IS LAYING IN BED WITH EYES CLOSED CHEST RISE EQUAL BILAT AT THIS TIME. PT ON RA WITH BED ALARM ACTIVE AND CURTAIN OPEN FOR PT SAFETY. PT HAS CALL LIGHT IN REACH IF NEEDED.
[2024-12-23] MEDS ORDERED: POTASSIUM CHLORIDE 10 MEQ TABCR PO ONE (08:30)
[2024-12-23] MEDS ORDERED: AMIODARONE HCL 200 MG TAB PO SCH (09:00)
--- NOTE | 2024-12-23 09:20 | NUR ---
Attempted to see pt. She has dementia and is unable to answer questions. Per 8:[address] Bee, pt may be her another day or so as we are waiting for cultures.
--- NOTE | 2024-12-23 10:13 | NUR ---
PT SITTING UP IN BED, PT TOLERATED THICKEND LIX WELL AND HAS NO CURRENT CONCERNS, PT SITTING UP IN BED ON RA WITH HOB ELEVATED AT THIS TIME CALL LIGHT IN REACH IF NEEDED.
--- NOTE | 2024-12-23 11:34 | NUR ---
PT NOT AVAILABLE FOR VISIT. PROVIDED PRAYER.
--- NOTE | 2024-12-23 15:00 | NUR ---
Spoke with Charge nurse and cultures are back. Pt will be ready for dc tomorrow most likely.
--- NOTE | 2024-12-23 15:41 | NUR ---
ASSISTED MATT ANDREA TO CHANGE PT AND CLEAN HER UP. CHANGED PURE WICK. PT REPOSITIONED WITH PILLOWS.
--- NOTE | 2024-12-23 16:30 | NUR ---
Called Dr. Castaneda and asked if this pt will be able to dc tomorrow. I have spoken with Nanda from [facility]. They will accept this pt, but would like her to be back by 10:00. It is the [facility] and they are taking there residents [place] the [place]. They would like to have She settled before they go. He will have orders completed. I called the van and they are completely booked as it is [facility].
--- NOTE | 2024-12-23 17:00 | NUR ---
Called and spoke with pts family as I am unable to reach [facility]. They say they cannot transport patient. I have a call in to [facility], asking if they are able to transport this pt tomorrow. Daughter updated pt will dc around 10. I received a text from [facility] she can transport this pt and will bring the wc. Charge nurse notified, pt will need to be ready by 1000.
--- NOTE | 2024-12-23 19:15 | NUR ---
REPORT RECEIVED FROM CHRISTIANA ERNST. PATIENT IN BED, EYES OPEN, CHEST RISE EVEN AND UNALBORED. IV FLUIDS INFUSING WITHOUT DIFFICULTY. SLEEPING EYE MASK PROVIDED TO PATIENT AT HER REQUEST. PATIENT DENIES FURTHER CONCERNS AT THIS TIME. CALL LIGHT AND PERSONAL BELONGINGS IN REACH OF PATIENT.
--- NOTE | 2024-12-23 21:08 | NUR ---
PATIENT IN BED WITH HOB RAISED, EYES OPEN, CHEST RISE EVEN AND UNLABORED. ASSESMENT, VITAL SINGS, AND MEWS COMPLETE. SCHEDULED MEDICATIONS ADMINISTERED. IV FLUID INFUSING WITHOUT DIFFICULTY. PATIENT REPOSITIONED IN BED. PATIENT DENIES CONCERNS AT THIS TIME.
--- NOTE | 2024-12-23 21:33 | NUR ---
PURE WICK CHANGED, CAIN CARE COMPLETED, PATIENT REPOSITIONED IN BED, SCDS PUT ON. PATIENT DENIES CONCERNS. PERSONAL BELONGINGS AND CALL LIGHT IN REACH OF PATIENT.
--- NOTE | 2024-12-23 22:31 | NUR ---
PATIENT IN BED, EYES CLOSED, CHEST RISE EVEN AND UNLABORED. CALL LIGHT AND PERSONAL BELONGINGS IN REACH. VIF LUID INFUSING WITHOUT DIFFICULTY, SCDS IN PLACE. NO APPARENT NEEDS NOTED AT THIS TIME.
--- NOTE | 2024-12-24 00:16 | NUR ---
PATIENT IN BED WITH HOB RAISED, EYES CLOSED, CHEST RISE EVEN. PATIENT WITH PAUSE IN BREATHING, MOUTH OPEN, AND SNORING. SPOT CHECKED O2 SAT WAS 83%. PLACED PATIENT ON 2 L OXYGEN WITH OXY MASK AND CPOX. PATIENT'S O2 SAT IS NOW 93%. IV FLUIDS INFUSING WITHOUT DIFFICULTY, SCDS IN PLACE. CALL LIGHT AND PERSONAL BELONGINGS IN REACH OF PATIENT. NO APPARENT NEEDS NOTED AT THIS TIME.
--- NOTE | 2024-12-24 01:55 | NUR ---
PATIENT IN BED WITH HOB RAISED, EYES CLOSED, CHEST RISE EVEN AND UNLABORED. IV FLUID INFUSING WITHOUT DIFFICULTY. CPOX AND SCDS IN PLACE. CALL LIGHT AND PERSONAL BELONGINGS IN REACH OF PATIENT. NO APPARENT NEEDS NOTED AT THIS TIME.
--- NOTE | 2024-12-24 03:52 | NUR ---
PATIENT IN BED WITH HOB RAISED, EYES CLOSED, CHEST RISE EVEN AND UNLABORED. CALL LIGHT AND PERSONAL BELONGINGS IN REACH OF PATIENT. NO APPARENT NEEDS NOTED AT THIS TIME.
[2024-12-24 05:23] LABS: BASOPHILS 0.7 % (0.1-1.2); EOSINOPHILS 4.7 % (0.7-5.8); LYMPHOCYTES 12.6 % (19.3-51.7); MCH 33.8 PG (25.6-32.2); MCHC 31.6 g/dL (32.2-35.5); MCV 106.7 fL (79.4-94.8); MONOCYTES 10.5 % (4.7-12.5); NEUTROPHILS 70.3 % (34.0-71.1); RBC 3.14 M/uL (3.93-5.22)
[2024-12-24 05:42] LABS: ALT (SGPT) 12.0 U/L (14-59); AST (SGOT) 12.0 U/L (15-37); GLOMERULAR FILTRATION RATE,EST 47.0 mL/min (>60); PROTEIN, TOTAL 6.1 g/dL (6.4-8.2); UREA NITROGEN 29.0 mg/dL (7-18)
[2024-12-24 05:51] VITALS: BP 134/69
[2024-12-24 05:56] VITALS: BP 134/69
--- NOTE | 2024-12-24 05:59 | NUR ---
PATIENT IN BED, EYES CLOSED, CHEST RISE EVEN AND UNALBORED. VITAL SIGNS, I AND O, AND MEWS COMPLETED. ASSESMENT COMPLETED. PURE WICK CHANGED AND CAIN CARE COMPLETED. IV FLUID INFUSING WITHOUT DIFFICULTY. CPOX AND SCDS IN PLACE. NO APPARENT NEEDS NOTED AT THIS TIME.
--- NOTE | 2024-12-24 07:20 | NUR ---
RECEIVED REPORT FROM KLEVER THOMAS. PT RESTING IN BED WITH EYES CLOSED. CALL LIGHT IN REACH AND BED LOWERED.
--- NOTE | 2024-12-24 07:31 | NUR ---
STAFF UPDATED PATIENT IS BEING TRANSPORTED BY [facility] FROM [facility] AT 1000.
--- NOTE | 2024-12-24 08:40 | NUR ---
PT SITTING UP IN BED ASSISTED WITH BREAKFAST BY KLEVER CINTRON. NO OTHER NEEDS AT THIS TIME, CALL LIGHT IN REACH.
[2024-12-24] MEDS ORDERED: GABAPENTIN 300 MG CAP PO SCH (09:00)
--- NOTE | 2024-12-24 09:08 | NUR ---
DISCUSSED DC TO [facility] THIS MORNING. VERBALIZES UNDERSTANDING. IMM LETTER DISCUSSED. DIFFICULTY MOVING HAND TO SIGN LETTER. VERBALIZES UNDERSTANDING, WAIVES 4 HOUR WAIT PERIOD. WITNESSED BY THIS NURSE AND KLEVER GRAHAM/CHARGE NURSE. DR. CABA UPDATED ON DC TIME OF 1000.
[2024-12-24] MEDS ORDERED: GABAPENTIN300 MG PO (09:15)
[2024-12-24] MEDS ORDERED: CEFUROXIME500 MG PO (09:16)
--- NOTE | 2024-12-24 09:49 | NUR ---
ORDERS FAXED TO [facility]
[2024-12-24 10:25] VITALS: BP 106/66
--- NOTE | 2024-12-24 10:25 | NUR ---
PT DRESSED IN OWN CLOTHES BY X2PA. IV DC'D WNL. PUREWICK DC'D, BREIF IN PLACE. VSS. PT UP TO WHEELCHAIR WITH X3PA INCLUDING LUIS M CARE STAFF PRESENT. DC PACKET AND EDUCATION GIVEN TO LUIS M CARE STAFF AND PT. PT AND LUIS M CARE STAFF STATE ALL QUESTIONS HAVE BEEN ANSWERED AT THIS TIME. PT LEAVING WITH ALL BELONGINGS INCLUDING WAFFLE OVERLAY WITH PUMP. PT WHEELED TO FRONT OF BUILDING BY NURSING PERSONEL.
== END 2024-12-24 10:25 | DRG 871 ==
LOC: ED 07:55 → MS 11:06
PROVIDERS: Emergency Medicine; ADMIT Family Medicine; ATTEND Student in an Organized Health Care Education/Training Program
DX: A41.51 Sepsis due to Escherichia coli [E. coli] (principal); J96.01 Acute respiratory failure with hypoxia; N39.0 Urinary tract infection, site not specified; N17.9 Acute kidney failure, unspecified; Z66 Do not resuscitate; I50.9 Heart failure, unspecified; G47.30 Sleep apnea, unspecified; D69.59 Other secondary thrombocytopenia; F03.90 Unspecified dementia, unspecified severity, without behavioral disturbance, psychotic disturbance, mood disturbance, and anxiety; I11.0 Hypertensive heart disease with heart failure; Z96.612 Presence of left artificial shoulder joint; Z79.01 Long term (current) use of anticoagulants; Z88.7 Allergy status to serum and vaccine; Z88.5 Allergy status to narcotic agent
CPT/HCPCS: 36415; 51701; 71045; 80053; 81001; 82803; 83605; 83735; 83880; 84100; 85025; 85610; 87040; 87077; 87088; 87186; 87502; 92526; 92610; 93005; 93010; 94760; 94762; 94799; 96365; 96375; 97162; 97167; 97530; 99285-25; A9270; J0696; J1938; J7030; U0002